=== PATIENT | female | born 1970 | race Caucasian/White ===

== ENCOUNTER 2020-11-28 20:52 | Emergency (ER) | payer MEDICARE, MEDICAID, SELFPAY ==
[2020-11-28 21:02] VITALS: BP 161/96; PULSE 100; RESP 18; TEMP 36.9; O2SAT 98; BMI 37.8
--- NOTE | 2020-11-29 00:03 | ED_ITS ---
HPI - Dental/Oral General Chief complaint: Dental/Oral Stated complaint: tooth infection Source: patient Mode of arrival: ambulatory Limitations: no limitations History of Present Illness HPI Narrative: 50-year-old female presents with 1 day of toothache and gum swelling with drainage. States that she has recurrent lower tooth pain and saw her dentist earlier this morning. Patient disagrees with dentist opinion and feels that she needs antibiotics. She was treated with clindamycin about 2 weeks ago. She does not report any other symptoms. MD Complaint: tooth pain Teeth map: 1. Onset (ago): day(s) (One) Duration: constant Severity: moderate Severity scale (1-10): 6 Relieving factors: nothing Exacerbating factors: chewing, cold and heat Context: history of dental caries and poor dental care Associated symptoms: gum swelling Treatment prior to arrival: oral analgesic Related Data Previous Rx's Medication Instructions Recorded azithromycin 250 mg tablet 250 mg PO DAILY 4 Days #4 tab 11/29/20 Allergies Allergy/AdvReac Type Severity Reaction Status Date / Time clarithromycin [From BIAXIN] Allergy Unknown RASH Verified 11/28/20 21:02 codeine [CODEINE] Allergy Unknown RASH Verified 11/28/20 21:02 iodine [IODINE] Allergy Unknown RASH Verified 11/28/20 21:02 Penicillins [PENICILLINS] Allergy Unknown RASH Verified 11/28/20 21:02 Sulfa (Sulfonamide Allergy Unknown RASH Verified 11/28/20 21:02 Antibiotics) [SULFA (SULFONAMIDE ANTIBIOTICS)] Review of Systems Review of Systems: Constitutional: No Fever, No Chills ENT/Mouth: No swallowing difficulty, no change in voice, positive dental pain, positive jaw pain, no facial swelling Eyes: No Eye Pain, No Swelling Cardiovascular: No Chest Pain, No SOB Respiratory: No Cough, No Sputum, No Wheezing, No Smoke Exposure, No Dyspnea Gastrointestinal: No Nausea, No Vomiting, No Diarrhea Genitourinary: No Dysuria Musculoskeletal: No Myalgias Skin: No rash Neuro: No Weakness, No Numbness, No Headache Yes all other systems are reviewed and are negative [facility] Past Medical History Attestation statement: The following information was validated with the patient. Source: old records reviewed Medical History (Updated 11/29/20 @ 00:15 by Sharon Lewis NP) Asthma Back pain Hypertension Surgical History H/O tooth extraction Social History Social History Advance Directives: No Advance Directives Information Provided: Yes Patient : No Physical Exam Vital Signs: Vital Signs: Last Vital Signs Temp 98.5 F 11/28/20 21:02 Pulse 100 11/28/20 21:02 Resp 18 11/28/20 21:02 BP 161/96 H 11/28/20 21:02 Pulse Ox 98 11/28/20 21:02 Body Mass Index 37.8 Appearance: Alert. Oriented X3. No acute distress. Eyes: Pupils equal, round and reactive to light. ENT: Pharynx normal. Gingivitis around tooth 19 and 20 Neck: Normal inspection. Neck supple. No cervical lymphadenopathy noted. CVS: Normal heart rate and rhythm. Pulses normal. Respiratory: No respiratory distress. Breath sounds normal. Abdomen: Soft and nontender. Skin: Skin warm and dry. Normal skin color. Normal skin turgor. Extremities: No lower extremity edema. Neuro: No motor deficit. No sensory deficit. Cranial nerves 2-12 intact. Course Course Course Narrative: 50-year-old female presents with dental pain. Was recently treated for dental abscess and tooth extraction with clindamycin approximately 2 weeks ago. She does have future appointments for tooth extraction. Was seen by dentist earlier this morning but stated that they did not feel that she had an infection. She states that since this morning that there has been more swelling to the inside of her mouth. She does have some significant gingivitis around tooth 19 and 20 with some bleeding. Will give azithromycin as she is allergic to penicillin, sulfa, and recently was given clindamycin twice in the past 2 months. Patient verbalized understanding of and agrees to plan of care discharge home. Does understand that she must continue to follow-up with dentist. MDM - Dental/Oral Differential Diagnosis Differential diagnosis: Likely gingival abscess, dental caries, toothache and dental abscess Discharge Plan Discharge Clinical Impression: Toothache, Acute gingivitis Patient Disposition: Home, Self-Care Instructions: Gingivitis (ED), Toothache (ED) Additional Instructions: You were evaluated for dental pain and gum swelling. Please take azithromycin as directed. Follow-up with your dentist. Thank you for choosing this emergency department for evaluation. Please foll ow-up with primary care physician as needed. Return to the emergency department for any new, concerning, or worsening symptoms. Prescriptions: New azithromycin 250 mg tablet 250 mg PO DAILY 4 Days Qty: 4 RF: 0 Interventions: ED Discharge Assessment Last Done: 11/29/20 00:37 Discharge Date/Time: 11/29/20 00:39
[2020-11-29] MEDS: Acetaminophen 325 MG TABLET 650 MG PO (00:34)
[2020-11-29] MEDS: Azithromycin 500 MG TABLET PO (00:34)
== END 2020-11-29 00:39 | disposition home or self-care (01) ==
PROVIDERS: Emergency Provider Emergency Medicine Emergency Medical Services; PCP Family Medicine
DX: K05.00 Acute gingivitis, plaque induced (principal); K08.89 Other specified disorders of teeth and supporting structures; Z79.899 Other long term (current) drug therapy
CPT/HCPCS: 99283

== ENCOUNTER 2020-12-16 19:12 | Emergency (ER) | payer MEDICARE, MEDICAID, SELFPAY ==
[2020-12-16 19:38] VITALS: BP 153/93; PULSE 91; RESP 18; TEMP 36.4; O2SAT 98; BMI 37.3
--- NOTE | 2020-12-16 21:00 | ED.DENTAL ---
HPI - Dental/Oral General Chief complaint: Dental/Oral Stated complaint: Mouth Infection Time Seen by Provider: 12/16/20 20:28 Source: patient Mode of arrival: ambulatory Limitations: no limitations History of Present Illness HPI Narrative: 50 y/o female presenting with various areas of dental and gum pain after she got a right lower tooth removed on November 15. She saw a different dentist than her own yesterday and was told she had gingivitis and was prescribed a mouthwash. She reports ongoing discomfort in her right lower jaw with reddened gums as well as upper left tooth pain. She plans on calling her dentist on Thursday but could not wait til then. She denies facial swelling. She reports pain with eating. MD Complaint: tooth pain Teeth map: 1. recent extraction with reddened and tender gums Onset (ago): week(s) Duration: constant Severity: moderate Severity scale (1-10): 5 Relieving factors: NSAIDs Exacerbating factors: chewing, cold and heat Context: history of dental caries and poor dental care Associated symptoms: gum swelling Treatment prior to arrival: none Related Data Previous Rx's Medication Instructions Recorded azithromycin 250 mg tablet 250 mg PO DAILY 4 Days #4 tab 11/29/20 azithromycin 250 mg tablet 250 mg PO DAILY 4 Days #4 tab 12/16/20 Allergies Allergy/AdvReac Type Severity Reaction Status Date / Time clarithromycin [From BIAXIN] Allergy Unknown RASH Verified 12/16/20 20:33 codeine [CODEINE] Allergy Unknown RASH Verified 12/16/20 20:33 iodine [IODINE] Allergy Unknown RASH Verified 12/16/20 20:33 Penicillins [PENICILLINS] Allergy Unknown RASH Verified 12/16/20 20:33 Sulfa (Sulfonamide Allergy Unknown RASH Verified 12/16/20 20:33 Antibiotics) [SULFA (SULFONAMIDE ANTIBIOTICS)] Review of Systems Review of Systems: Constitutional: No Fever, No Chills ENT/Mouth: No sore throat, No Rhinorrhea, No Swallowing Difficulty, +dental pain Cardiovascular: No Chest Pain, No SOB Respiratory: No Cough, No Sputum Gastrointestinal: No Nausea, No Vomiting, No abdominal Pain Skin: No Skin Lesions, No rash Neuro: No Weakness, No Numbness Heme/Lymph: No Bruising, No Lymphadenopathy [facility] Past Medical History Medical History (Updated 12/16/20 @ 21:01 by UMER Bush) Asthma Back pain Hypertension Surgical History H/O tooth extraction Social History Social History Advance Directives: No Advance Directives Information Provided: No Patient : No Physical Exam Vital Signs: Vital Signs: Last Vital Signs Temp 97.6 F 12/16/20 19:38 Pulse 91 12/16/20 19:38 Resp 18 12/16/20 19:38 BP 153/93 H 12/16/20 19:38 Pulse Ox 98 12/16/20 19:38 Body Mass Index 37.3 Appearance: Alert. Oriented X3. No acute distress. Eyes: Pupils equal, round and reactive to light. ENT: no facial swelling, poor dentition with multiple prior extractions, right lower gums are erythematous and tender without fluctance or drainage. Neck: Normal inspection. Neck supple. CVS: Normal heart rate and rhythm. Pulses normal. Respiratory: No respiratory distress. Breath sounds normal. Skin: Skin warm and dry. Normal skin color. Normal skin turgor. No rashes. Extremities: No lower extremity edema. Neuro: Oriented X 3. No motor deficit. No sensory deficit. Course Course Course Narrative: 50 y/o female presenting with reddened and inflamed gums in her right lower mouth. No palpable abscess, no facial swelling. Will give empiric abx to cover possible infection until she can be seen by her dentist on Thursday. Patient agrees with plan and is stable for discharge home. Critical Care Time Critical Care Time Critical Care Time: No Discharge Plan Discharge Clinical Impression: Toothache Patient Disposition: Home, Self-Care Instructions: Gingivitis (ED) Additional Instructions: Take the prescribed antibiotic as directed. Follow up with your dentist on Thursday. Continue using the prescribed mouthwash. If you develop new or worsening symptoms call 911 or come back to the ER for further evaluation. Prescriptions: New azithromycin 250 mg tablet 250 mg PO DAILY 4 Days Qty: 4 RF: 0 No Action azithromycin 250 mg tablet 250 mg PO DAILY 4 Days Qty: 4 RF: 0 Interventions: ED Discharge Assessment Last Done: 12/16/20 21:31 Discharge Date/Time: 12/16/20 21:32
[2020-12-16] MEDS: Azithromycin 500 MG TABLET PO (21:28)
== END 2020-12-16 21:32 | disposition home or self-care (01) ==
PROVIDERS: Emergency Provider Internal Medicine
DX: K08.89 Other specified disorders of teeth and supporting structures (principal); Z79.899 Other long term (current) drug therapy
CPT/HCPCS: 99283; 99284

== ENCOUNTER 2021-01-12 21:38 | Emergency (ER) | payer MEDICARE, MEDICAID, SELFPAY ==
[2021-01-12 21:41] VITALS: BP 175/99; PULSE 114; RESP 18; TEMP 35.8; O2SAT 99; BMI 36.6
--- NOTE | 2021-01-12 22:24 | ED.DENTAL ---
HPI - Dental/Oral General Chief complaint: Dental/Oral Stated complaint: dental pain Source: patient Mode of arrival: ambulatory Limitations: no limitations History of Present Illness HPI Narrative: 50-year-old female presents with unrelieved dental pain. Was seen by the dentist earlier today for gingivitis, was given an x-ray and a prescription for clindamycin. Patient took 200 mg of ibuprofen earlier today with no affect. MD Complaint: tooth pain Teeth map: 1. Onset (ago): day(s) Duration: constant Severity: moderate Relieving factors: NSAIDs (200 mg of ibuprofen) Exacerbating factors: chewing, cold and heat Context: history of dental caries and poor dental care Associated symptoms: gum swelling Related Data Previous Rx's Medication Instructions Recorded azithromycin 250 mg tablet 250 mg PO DAILY 4 Days #4 tab 11/29/20 azithromycin 250 mg tablet 250 mg PO DAILY 4 Days #4 tab 12/16/20 Allergies Allergy/AdvReac Type Severity Reaction Status Date / Time clarithromycin [From BIAXIN] Allergy Unknown RASH Verified 01/12/21 21:41 codeine [CODEINE] Allergy Unknown RASH Verified 01/12/21 21:41 iodine [IODINE] Allergy Unknown RASH Verified 01/12/21 21:41 Penicillins [PENICILLINS] Allergy Unknown RASH Verified 01/12/21 21:41 Sulfa (Sulfonamide Allergy Unknown RASH Verified 01/12/21 21:41 Antibiotics) [SULFA (SULFONAMIDE ANTIBIOTICS)] Review of Systems Review of Systems: Constitutional: No Fever, No Chills ENT/Mouth: Positive dental pain, positive gingivitis, No Ear Pain, No Hoarseness, No sore throat Eyes: No Eye Pain, No Swelling, No Redness, No Foreign Body Cardiovascular: No Chest Pain, No SOB Respiratory: No Cough, No Dyspnea Gastrointestinal: No Nausea, No Vomiting, No Diarrhea, No abdominal Pain Genitourinary: No Dysuria, No Hematuria Musculoskeletal: positive joint pain, No Myalgias, No Joint Swelling Skin: No Skin lacerations, No rash Neuro: No Weakness, No Numbness, No Paresthesias, No Loss of Consciousness, No Dizziness, No Headache Psych: No Anxiety/Panic, No Depression Heme/Lymph: no easy bruising, no Lymphadenopathy Endocrine: No Polyuria, No Polydipsia Yes all other systems are reviewed and are negative [facility] Past Medical History Attestation statement: The following information was validated with the patient. Source: old records reviewed Medical History Asthma Back pain Hypertension Surgical History H/O tooth extraction Social History Social History Advance Directives: No Advance Directives Information Provided: No Patient : No Physical Exam Vital Signs: Vital Signs: Last Vital Signs Temp 96.5 F L 01/12/21 21:41 Pulse 99 01/12/21 22:25 Resp 18 01/12/21 22:25 BP 153/100 H 01/12/21 22:25 Pulse Ox 97 01/12/21 22:25 Body Mass Index 36.6 Appearance: Alert. Oriented X3. No acute distress. Eyes: PERRLA. EOMI. Conjunctiva and sclera normal. Eyelids normal.? ENT: TM's Normal. Pharynx normal. Uvula midline. Moist mucous membranes. ? No trismus noted.? No drooling noted.? No muffled voice noted. Neck: Normal inspection. Neck supple. No adenopathy. Thyroid Normal. No meningeal signs. No neck mass noted. CVS: Normal heart rate and rhythm. Heart sound normal. No murmurs noted. Pulses? equal to all extremities. Respiratory: No respiratory distress. Painless inspiration. Breath sounds normal. No wheezes/rales/rhonchi noted. Chest nontender. ? No accessory muscle usage noted or decreased air movement noted. Skin: Skin warm and dry. Normal skin color. Normal skin turgor. Extremities: No lower extremity edema. Neuro: No motor deficit. No sensory deficit. Course Course Course Narrative: 50-year-old female presents with dental pain. Seen by her dentist earlier today and given clindamycin for gingivitis and dental caries. Her dentist recommended ibuprofen, however she has only been taking 200 mg tablets. Patient states to have anxiety, and is due for her blood pressure medications at 11. Will give Toradol IM. Patient was advised take 600 mg of ibuprofen rather than 200 every 6 hours as needed for pain. This [employer] as well as Nursing discussed in detail appropriate ibuprofen dosage. Patient and patient's family verbalized understanding of and agrees to this plan of care. MDM - Dental/Oral Differential Diagnosis Differential diagnosis: Likely dental caries and toothache Medical Records Attestation: I reviewed the patient's medical records. Discharge Plan Discharge Clinical Impression: Toothache, Dental caries Patient Disposition: Home, Self-Care Instructions: Toothache (ED) Additional Instructions: You were evaluated for dental pain. Please take 600 mg of ibuprofen every 6 hours as needed for pain. Continue to take the clindamycin that was prescribed by her dentist earlier today. You may consider using Orajel for further pain management. Thank you for choosing this emergency department for evaluation. Please follow-up with primary care physician as needed. Return to the emergency department for any new, concerning, or worsening symptoms. Prescriptions: No Action azithromycin 250 mg tablet 250 mg PO DAILY 4 Days Qty: 4 RF: 0 azithromycin 250 mg tablet 250 mg PO DAILY 4 Days Qty: 4 RF: 0
[2021-01-12 22:25] VITALS: BP 153/100; PULSE 99; RESP 18; O2SAT 97
[2021-01-12] MEDS: Ketorolac Tromethamine 60 MG/2 ML VIAL IM (23:25)
== END 2021-01-12 23:43 | disposition home or self-care (01) ==
PROVIDERS: Emergency Provider Emergency Medicine Emergency Medical Services; PCP Family Medicine
DX: K02.9 Dental caries, unspecified (principal); Z79.899 Other long term (current) drug therapy
CPT/HCPCS: 96372; 99284; J1885

== ENCOUNTER 2021-03-05 17:47 | Emergency (ER) | payer MEDICARE, MEDICAID, SELFPAY ==
[2021-03-05 19:14] VITALS: BP 147/95; PULSE 98; RESP 18; TEMP 36.8; O2SAT 98; BMI 34.7
--- NOTE | 2021-03-05 19:51 | ED_ITS ---
HPI - General Adult General Chief complaint: General Medical Stated complaint: infection in her mouthj Time Seen by Provider: 03/05/21 19:37 Source: patient Mode of arrival: ambulatory Limitations: no limitations History of Present Illness HPI narrative: 51-year-old female here with complaints of dental pain for the last 2 days. Patient tells me she went to her dentist and he told her that she had gingivitis but she is having continued pain and feels like there is swelling and discomfort to the site. She denies any fevers or chills. She has another coming appointment with her dentist on Thursday as a follow-up. Related Data Previous Rx's Medication Instructions Recorded azithromycin 250 mg tablet 250 mg PO DAILY 4 Days #4 tab 11/29/20 azithromycin 250 mg tablet 250 mg PO DAILY 4 Days #4 tab 12/16/20 ibuprofen 600 mg tablet 600 mg PO Q8H PRN #60 tab 01/12/21 clindamycin HCl 300 mg capsule 300 mg PO TID #21 cap 03/05/21 Allergies Allergy/AdvReac Type Severity Reaction Status Date / Time clarithromycin [From BIAXIN] Allergy Unknown RASH Verified 03/05/21 19:14 codeine [CODEINE] Allergy Unknown RASH Verified 03/05/21 19:14 iodine [IODINE] Allergy Unknown RASH Verified 03/05/21 19:14 Penicillins [PENICILLINS] Allergy Unknown RASH Verified 03/05/21 19:14 Sulfa (Sulfonamide Allergy Unknown RASH Verified 03/05/21 19:14 Antibiotics) [SULFA (SULFONAMIDE ANTIBIOTICS)] Review of Systems Review of Systems: Yes all other systems are reviewed and are negative Constitutional: Constitutional: Reports no additional constitutional complaints, Denies body ache(s), Denies chills, Denies fever(s), Denies headache(s) and Denies weakness Eyes: Eyes: Reports no additional eye complaints and Denies change in vision ENT: Reports system reviewed and no additional complaints, except as documented, Reports dental pain, Denies dizziness, Denies headache(s), Denies nasal congestion, Denies nasal discharge and Denies neck pain Cardiovascular: Cardiovascular: Reports no additional cardiovascular complaints, Denies chest pain, Denies leg edema and Denies dyspnea Respiratory: Respiratory: Reports no additional respiratory complaints, Denies cough and Denies dyspnea Gastrointestinal: Gastrointestinal: Reports no additional gastrointestinal complaints, Denies abdominal pain, Denies diarrhea, Denies nausea and Denies vomiting Genitourinary: Genitourinary: Reports no additional female genitourinary complaints and Denies urinary incontinence Musculoskeletal: Musculoskeletal: Reports no additional musculoskeletal complaints, Denies back pain, Denies arthralgias, Denies joint swelling, Denies neck pain, Denies numbness and Denies tingling Integumentary/Breasts: Skin/Breast: Reports system reviewed and no additional complaints, except as docu and Denies rash Neurologic: Reports system reviewed and no additional complaints, except as documented, Denies Abnormal speech present, Denies dizziness, Denies heada neena(s), Denies numbness, Denies tingling and Denies weakness [facility] Past Medical History Attestation statement: The following information was validated with the patient. Source: old records reviewed and nursing notes reviewed Medical History Asthma Back pain Hypertension Surgical History H/O tooth extraction Social History Social History Advance Directives: No Advance Directives Information Provided: No Physical Exam Vital Signs: Vital Signs: Last Vital Signs Temp 98.3 F 03/05/21 19:14 Pulse 98 03/05/21 19:14 Resp 18 03/05/21 19:14 BP 147/95 H 03/05/21 19:14 Pulse Ox 98 03/05/21 19:14 Body Mass Index 34.7 Const: General: cooperative, healthy appearing, comfortable and no acute distress Orientation/consciousness: patient oriented x3 Limitations: no limitations HENMT: Head: Yes normal to inspection Ears: hearing grossly normal bilaterally and TM's normal bilaterally General nose exam: Normal external nose present Face and sinus: Yes normal facial exam Mouth: Normal oral and palatal mucosa present Teeth and gingiva: caries Teeth image: 1. Swelling, redness, discomfort with palpation with no fluctuance or induration Throat: Yes posterior oropharynx normal, Yes tonsils normal and Yes uvula midline Eyes: General: appearance normal, both eyes and all related structures Pupils: Equal, round and reactive pupils present Neck: Neck: Yes normal visual inspection Chest: Chest palpation & inspection: normal inspection of the chest Resp: Effort & Inspection: normal respiratory effort Auscultation: clear to auscultation bilaterally Cardio: Rate: regular rate Rhythm: regular rhythm Peripheral pulses: Peripheral pulses 2+ throughout GI: Inspection: Yes normal to inspection Palpation (GI): Soft to palpation and nontender Auscultation: normal bowel sounds Back/Spine/Pelvis: Thoracic/Lumbar Spine: thoracic and lumbar spine normal to inspection Skin: General skin exam: no rashes or lesions noted Neuro: General: patient oriented x3, no focal motor deficits and normal sensation to monofilament Cranial nerves: Yes Equal, round and reactive p upils present Cognition (Neuro): normal cognition Speech: No Abnormal speech present Gait exam (Neuro): Normal gait present Motor exam (neuro): 5/5 motor strength present throughout Extrem: General: Yes normal to inspection Course Course Course Narrative: 51-year-old female with a history of extensive dental caries here with reports of some pain and swelling and redness to the right upper tooth. On exam patient has what appears to be some mild gingivitis. She does have some local swelling and redness around 1 of her front teeth. Will treat with course of antibiotics. Recommend saltwater gargles and follow-up with dental clinic. Reviewed worrisome signs and symptoms of when to return to the emergency department. Comfortable with discharge home. Medical Decision Making Medical Records Medical records reviewed: Yes I reviewed the patient's medical records. Lab Data Lab results reviewed: Yes I reviewed the patient's lab results. Discharge Plan Discharge Clinical Impression: Pain, dental Patient Disposition: Home, Self-Care Instructions: Toothache (ED) Additional Instructions: Continue salt water gargles Motrin/tylenol for pain or fever as needed Follow with dental clinic Prescriptions: New clindamycin HCl 300 mg capsule 300 mg PO TID Qty: 21 RF: 0 No Action azithromycin 250 mg tablet 250 mg PO DAILY 4 Days Qty: 4 RF: 0 azithromycin 250 mg tablet 250 mg PO DAILY 4 Days Qty: 4 RF: 0 ibuprofen 600 mg tablet 600 mg PO Q8H PRN (Reason: pain) Qty: 60 RF: 0 Referrals: Soha Can MD [Primary Care Provider] - 2 days Interventions: ED Discharge Assessment Last Done: 03/05/21 19:58 Discharge Date/Time: 03/05/21 19:58
== END 2021-03-05 19:58 | disposition home or self-care (01) ==
LOC: HO.ED 19:44
PROVIDERS: Emergency Provider Internal Medicine; PCP Family Medicine
DX: K02.9 Dental caries, unspecified (principal); Z79.899 Other long term (current) drug therapy
CPT/HCPCS: 99283

== ENCOUNTER 2021-03-19 20:16 | Emergency (ER) | payer MEDICARE, MEDICAID, SELFPAY ==
[2021-03-19 20:26] VITALS: BP 159/98; PULSE 114; RESP 18; TEMP 36.6; O2SAT 97; BMI 34.0
--- NOTE | 2021-03-19 23:12 | ED.GENADULT ---
HPI - General Adult General Chief complaint: Dental/Oral Stated complaint: mouth pain extraction 03/19 Time Seen by Provider: 03/19/21 23:10 Source: patient and family Mode of arrival: ambulatory Limitations: no limitations History of Present Illness HPI narrative: 51-year-old female came in for evaluation of severe dental pain. Patient with extensive gum disease that been having dental extraction, patient had 2 dental extraction today both right lower 1st and 2nd bicuspid tooth, patient unable to swallow because of the pain patient did not take ibuprofen. Related Data Previous Rx's Medication Instructions Recorded azithromycin 250 mg tablet 250 mg PO DAILY 4 Days #4 tab 11/29/20 azithromycin 250 mg tablet 250 mg PO DAILY 4 Days #4 tab 12/16/20 ibuprofen 600 mg tablet 600 mg PO Q8H PRN #60 tab 01/12/21 clindamycin HCl 300 mg capsule 300 mg PO TID #21 cap 03/05/21 Allergies Allergy/AdvReac Type Severity Reaction Status Date / Time clarithromycin [From BIAXIN] Allergy Unknown RASH Verified 03/05/21 19:14 codeine [CODEINE] Allergy Unknown RASH Verified 03/05/21 19:14 iodine [IODINE] Allergy Unknown RASH Verified 03/05/21 19:14 Penicillins [PENICILLINS] Allergy Unknown RASH Verified 03/05/21 19:14 Sulfa (Sulfonamide Allergy Unknown RASH Verified 03/05/21 19:14 Antibiotics) [SULFA (SULFONAMIDE ANTIBIOTICS)] Review of Systems Review of Systems: All other systems are reviewed and are negative Constitutional: Reports as per HPI and Reports no additional constitutional complaints Eyes: Reports as per HPI and Reports no additional eye complaints Reports system reviewed and no additional complaints, except as documented Cardiovascular: Reports as per HPI and Reports no additional cardiovascular complaints Respiratory: Reports as per HPI and Reports no additional respiratory complaints Gastrointestinal: Reports as per HPI and Reports no additional gastrointestinal complaints Genitourinary: Reports no additional female genitourinary complaints Musculoskeletal: Reports no additional musculoskeletal complaints Skin/Breast: Reports system reviewed and no additional complaints, except as docu Psychiatric: Reports no additional psychiatric complaints Endocrine: Reports no additional endocrine complaints Hematologic/Lymphatic: Reports no additional hematologic/lymphatic complaints Allergic/Immunologic: Reports no additional allergic/immunologic complaints Reports system reviewed and no additional complaints, except as documented and Reports Abnormal speech present PMFSH Past Medical History Medical History Asthma Back pain Hypertension Surgical History H/O tooth extraction Social History Social History Advance Directives: No Advance Directives Information Provided: No Physical Exam Vital Signs: Vital Signs: Last Vital Signs Temp 98 F 03/19/21 20:26 Pulse 114 H 03/19/21 20:26 Resp 18 03/19/21 20:26 BP 159/98 H 03/19/21 20:26 Pulse Ox 97 03/19/21 20:26 BMI result Body Mass Index 34.0 Insert normal vital signs. Appearance: Alert. Oriented X3. No acute distress. Head: Normal external exam. Normocephalic. Atraumatic. No Saleh signs noted. No raccoon eyes noted. Mouth exam: Status post right lower 1st and 2nd bicuspid tooth extraction, blood clots intact with no dry socket, no active bleeding, no palpable fluctuation or abscess. Eyes: PERRLA. EOMI. Conjunctiva and sclera normal. Eyelids normal. ENT: TM's Normal. Pharynx normal. Uvula midline. Moist mucous membranes. No trismus noted. No drooling noted. No muffled voice noted. Neck: Normal inspection. Neck supple. FROM. No adenopathy. Thyroid Normal. No meningeal signs. No neck mass noted. CVS: Normal heart rate and rhythm. Heart sound normal. No murmurs noted. Pulses normal throughout. Respiratory: No respiratory distress. Painless inspiration. Breath sounds normal. No wheezes/rales/rhonchi noted. Chest nontender. No accessory muscle usage noted or decreased air movement noted. Abdomen: Soft and nontender. Bowel sounds normal in all 4 quadrants. No distention noted. No organomegaly noted. No visible injury noted. Back: No CVA tenderness. Full range of motion noted. Skin: Skin warm and dry. Normal skin color. Normal skin turgor. No rashes/lesions/lacerations noted. Extremities: No lower extremity edema. Extremities exhibit normal range of motion. Extremities nontender. Neuro: Oriented X 3. Cranial nerve exam: II-XII are grossly intact No motor deficit. No sensory deficit. Reflexes normal. Course Course Course Narrative: Assessment and plan. 51-year-old female came was oral pain secondary to extraction of 2 toes today, patient did not take pain medication. Patient was given 1 shot of Toradol and felt better, will discharge home to follow-up with her dentist in the morning. Discharge Plan Discharge Clinical Impression: Toothache Patient Disposition: Home, Self-Care Instructions: Toothache (ED) Additional Instructions: If pain persist please contact your dentist. Prescriptions: No Action azithromycin 250 mg tablet 250 mg PO DAILY 4 Days Qty: 4 RF: 0 azithromycin 250 mg tablet 250 mg PO DAILY 4 Days Qty: 4 RF: 0 ibuprofen 600 mg tablet 600 mg PO Q8H PRN (Reason: pain) Qty: 60 RF: 0 clindamycin HCl 300 mg capsule 300 mg PO TID Qty: 21 RF: 0 Referrals: Soha Can MD [Primary Care Provider] - 2 days
[2021-03-19 23:13] VITALS: BP 147/81; PULSE 87; RESP 18; O2SAT 96
[2021-03-19] MEDS: Ketorolac Tromethamine 60 MG/2 ML VIAL IM (23:31)
== END 2021-03-19 23:43 | disposition home or self-care (01) ==
PROVIDERS: Emergency Provider Emergency Medicine; PCP Family Medicine
DX: K02.9 Dental caries, unspecified (principal); Z79.899 Other long term (current) drug therapy
CPT/HCPCS: 96372; 99284; J1885

== ENCOUNTER 2021-04-01 10:22 | Emergency (ER) | payer MEDICARE, MEDICAID, SELFPAY ==
--- NOTE | ~2021-04-01 | XR_ITS ---
EXAMINATION: XR SHOULDER, RIGHT CLINICAL INFORMATION: Atraumatic right shoulder pain COMPARISON: None TECHNIQUE: Three views of the right shoulder. FINDINGS: Bone alignment is normal. No fracture or dislocation is seen. The joint spaces are normal. There is soft tissue calcification adjacent to the right greater tuberosity suggestive of calcific bursitis. XR/XR shoulder RT min 2V IMPRESSION: Soft tissue calcification adjacent to the greater tuberosity suggestive of calcific bursitis.
[2021-04-01 11:28] VITALS: BP 149/87; PULSE 124; RESP 18; TEMP 36.9; O2SAT 99; BMI 33.8
--- NOTE | 2021-04-01 11:29 | ED_ITS ---
HPI - Extremity Problem General Chief complaint: Extremity Injury, Upper Stated complaint: r arm pain Time Seen by Provider: 04/01/21 11:28 Source: patient and family Mode of arrival: ambulatory Limitations: no limitations History of Present Illness HPI Narrative: 51-year-old female with a past medical history of hypertension, asthma chronic back pain presenting to the ED with complaints of atraumatic right shoulder pain with limited range of motion since Thursday worse today especially when she tries to lift her arm or tries to dress herself for any activity with the right arm. She denies any falls, fevers, chills, dizziness, headaches, nausea/ vomiting, changes in vision, chest pain or shortness of breath, dyspnea on exertion, orthopnea, extremity edema, palpitations, recent travel or falls, denies recent immobilization surgery, history of DVT or PE, history of PVD, recent illness, history of gout, rashes, paresthesias or any other symptoms complaints or concerns at this time. MD Complaint: other ( Right shoulder joint pain) Onset (ago): day(s) (2) Pain Consistency: constant Location: right and upper extremity ( shoulder) Severity scale (1-10): >10 Quality: aching and constant Radiation: none Relieving factors: other ( keeping it in an internal rotation) Exacerbating factors: range of motion and palpation Associated symptoms: denies other symptoms Related Data Previous Rx's Medication Instructions Recorded azithromycin 250 mg tablet 250 mg PO DAILY 4 Days #4 tab 11/29/20 azithromycin 250 mg tablet 250 mg PO DAILY 4 Days #4 tab 12/16/20 ibuprofen 600 mg tablet 600 mg PO Q8H PRN #60 tab 01/12/21 clindamycin HCl 300 mg capsule 300 mg PO TID #21 cap 03/05/21 hydrocodone 5 mg-acetaminophen 325 1 tab PO Q6-8H PRN #14 tab 04/01/21 mg tablet ibuprofen 800 mg tablet 800 mg PO Q6H PRN #14 tab 04/01/21 Allergies Allergy/AdvReac Type Severity Reaction Status Date / Time clarithromycin [From BIAXIN] Allergy Unknown RASH Verified 03/05/21 19:14 codeine [CODEINE] Allergy Unknown RASH Verified 03/05/21 19:14 iodine [IODINE] Allergy Unknown RASH Verified 03/05/21 19:14 Penicillins [PENICILLINS] Allergy Unknown RASH Verified 03/05/21 19:14 Sulfa (Sulfonamide Allergy Unknown RASH Verified 03/05/21 19:14 Antibiotics) [SULFA (SULFONAMIDE ANTIBIOTICS)] Review of Systems Review of Systems: Constitutional : No Weight loss, No Fever, No Chills, No Night Sweats, No Fatigue, No Malaise ENT/Mouth : No Hearing loss, No Ear Pain, No Nasal Congestion, No Sinus Pain, No Hoarseness, No sore throat, No Rhinorrhea, No Swallowing Difficulty Eyes: No Eye Pain, No Swelling, No Redness, No Foreign Body, No Discharge, No Vision Changes Cardiovascular : No Chest Pain, No SOB, No Dyspnea on Exertion, No Orthopnea, No Edema, No Palpitations Respiratory : No Cough, No Sputum, No Wheezing, No Smoke Exposure, No Dyspnea Gastrointestinal : No Nausea, No Vomiting, No Diarrhea, No Constipation, No abdominal Pain, No Hematochezia, No Melena Genitourinary : no irregular bleeding, No Dysuria, No Urinary Frequency, No Hematuria, No Urinary Incontinence, No Urgency, No Flank Pain, No Urinary Flow Changes, No Hesitancy Musculoskeletal : + joint pain, No Myalgias, No Joint Swelling Skin : No Skin Lesions, No rash Neuro : No Weakness, No Numbness, No Paresthesias, No Loss of Consciousness, No Dizziness, No Headache Psych : No Anxiety/Panic, No Depression, No SI/HI/AH/VH, No Social Issues, Heme/Lymph: No Bruising, No Bleeding,No Lymphadenopathy Endocrine : No Polyuria, No Polydipsia, No Temperature Intolerance Yes all oth er systems are reviewed and are negative [facility] Past Medical History Attestation statement: The following information was validated with the patient. Medical History Asthma Back pain Hypertension Surgical History H/O tooth extraction Social History Social History Advance Directives: No Advance Directives Information Provided: Yes Patient : No Physical Exam Vital Signs: Vital Signs: Last Vital Signs Temp 98.4 F 04/01/21 11:28 Pulse 124 H 04/01/21 11:28 Resp 18 04/01/21 11:28 BP 149/87 H 04/01/21 11:28 Pulse Ox 99 04/01/21 11:28 BMI result Body Mass Index 33.8 vital signs have been reviewed as normal and appeared to be correct. Blood pressure 149/87. Heart rate 124. Respiration rate normal. Temperature normal. Oxygen saturation normal. Appearance: Alert. Oriented X3. No acute distress. Head: Normal external exam. Normocephalic. Atraumatic. Eyes: PERRLA. EOMI. Conjunctiva and sclera normal. Eyelids normal. ENT: Pharynx normal. Uvula midline. Moist mucous membranes. No trismus noted. No drooling noted. No muffled voice noted. Neck: Normal inspection. Neck supple. FROM. No adenopathy. Thyroid Normal. No meningeal signs. No neck mass noted. CVS: Normal heart rate and rhythm. Heart sound normal. Pulses normal throughout. No murmurs/rales/gallops. Respiratory: No respiratory distress. Painless inspiration. Breath sounds normal. No wheezes/rales/rhonchi noted. Chest nontender. No accessory muscle usage noted or decreased air movement noted. Abdomen: Soft and nontender. Bowel sounds normal in all 4 quadrants. No distention noted. No organomegaly noted. No visible injury noted. Back: No CVA tenderness. Full range of motion noted. No rashes/lesion/induration/fluctuance or signs of infection noted. Skin: Skin warm and dry. Normal skin color. Normal skin turgor. No rashes/lesions/lacerations noted. Extremities: patient with moderate tenderness to the bursa of the right shoulder with limited range of motion with shoulder flexion / extension / abduction / external rotation. no obvious ligamentous or tendon injury noted. No rashes or signs of infection noted. She keeps it and internal rotation where she reports it feels comfortable. No extremity edema is noted. Otherwise all other Extremities exhibit normal range of motion and nontender. Neuro: Oriented X 3. No motor deficit. No sensory deficit. Reflexes normal. Normal steady gait. No focal neuro deficits noted. Vascular: + radial pulses/+ 2 distal pedal pulses/+2 dorsalis pedis b/l. Normal cap refill. No cyanosis noted to upper extremity nails and lower extremity toes nails. Course Course Course Narrative: 11:30am - Quick assessment. 51-year-old female presenting to the ED with complaints of right shoulder pain that started after she went to the bathroom on Thursday. She reports that she does not believe she injured it in any way denies any traumas or falls. Denies any numbness or tingling, chest pain or shortness of breath, dizziness, headache, palpitations, extremity edema or any other symptoms complaints or concerns at this time. Reports she is vaccinated to COVID. Denies recent travel/surgery/immobilization. At this time patient is alert oriented x3. Not in any acute distress. Only in pain. Vital signs are stable within normal limits. No focal neuro deficits are noted. Patient does have limited range of motion of the right shoulder she is unable to lift it. Although has full range of motion of the right elbow and right hand/wrist. No extremity edema. Positive radial pulses bilaterally noted . At this time a right shoulder x-ray was ordered and patient will be sent back to the waiting room for further evaluation treatment and emergency minor care. Patient understands agrees with this plan. Reevaluation(s) Reevaluation #1: X-ray revealed soft tissue calcification adjacent to the greater tuberosity suggestive of calcified bursitis otherwise no other acute processes. Therefore will give a Toradol injection and Vicodin and DC home with Motrin and Vicodin instructions to follow-up with orthopedic and her PCP although to follow-up with her PCP 1st for possible physical therapy referral. Along with instructions return if any new or worsening 7. Patient and family at bedside understands agrees this plan. Time: 14:01 MDM - Extremity (Nontraumatic) Imaging Data Right shoulder x-ray: Attestation: I personally reviewed and interpreted this imaging study as follows: Radiologist's impression: FINDINGS: Bone alignment is normal. No fracture or dislocation is seen. The joint spaces are normal. There is soft tissue calcification adjacent to the right greater tuberosity suggestive of calcific bursitis.? XR/XR shoulder RT min 2V IMPRESSION: Soft tissue calcification adjacent to the greater tuberosity suggestive of calcific bursitis. Procedures Orthopedic Splinting/Casting Injury #1: Side: right Upper Extremity Injury Location: shoulder Upper Extremity Immobilizer: sling/shoulder immobilizer Discharge Plan Discharge Clinical Impression: Acute bursitis of right shoulder Patient Disposition: Home, Self-Care Instructions: Shoulder Bursitis (ED) Additional Instructions: XRay Report Signed Patient: Dalia Francis MR#: [id number] : 1970 Acct:[id number] Age/Sex: 51 / F ADM Date: 04/01/21 Loc: HO.ED Attending Dr: Ordering Physician: Mildred Amador Date of Service: 04/01/21 Procedure(s): XR shoulder RT min 2V Accession Number(s): [id number] cc: Mildred Amador~ EXAMINATION: XR SHOULDER, RIGHT CLINICAL INFORMATION: Atraumatic right shoulder pain? COMPARISON: None? TECHNIQUE: Three views of the right shoulder. FINDINGS: Bone alignment is normal. No fracture or dislocation is seen. The joint spaces are normal. There is soft tissue calcification adjacent to the right greater tuberosity suggestive of calcific bursitis.? XR/XR shoulder RT min 2V IMPRESSION: Soft tissue calcification adjacent to the greater tuberosity suggestive of calcific bursitis. I am providing a sling although you should attempt to do the range of motion exercises that I showed you while in the emergency department as often as possible to prevent frozen shoulder. Follow up with her primary care provider for physical therapy referral. Then follow-up with orthopedic if indicated. Return if any new or worsening symptoms. Prescriptions: New hydrocodone-acetaminophen 5-325 mg tablet 1 tab PO Q6-8H PRN (Reason: pain) Qty: 14 RF: 0 ibuprofen 800 mg tablet 800 mg PO Q6H PRN (Reason: pain) Qty: 14 RF: 0 No Action azithromycin 250 mg tablet 250 mg PO DAILY 4 Days Qty: 4 RF: 0 azithromycin 250 mg tablet 250 mg PO DAILY 4 Days Qty: 4 RF: 0 ibuprofen 600 mg tablet 600 mg PO Q8H PRN (Reason: pain) Qty: 60 RF: 0 clindamycin HCl 300 mg capsule 300 mg PO TID Qty: 21 RF: 0 Referrals: Soha Can MD [Primary Care Provider] - 2 days Interventions: ED Discharge Assessment Last Done: 04/01/21 14:29 Discharge Date/Time: 04/01/21 14:30 Print Language: Sami
[2021-04-01] MEDS: Ketorolac Tromethamine 30 MG/ML VIAL 15 MG IVPUSH (14:17)
[2021-04-01] MEDS: HYDROcodone Bit/Acetam 5/325 TABLET 1 TAB PO (14:17)
== END 2021-04-01 14:30 | disposition home or self-care (01) ==
PROVIDERS: Emergency Provider Emergency Medicine; PCP Family Medicine
DX: M75.51 Bursitis of right shoulder (principal); I10 Essential (primary) hypertension
CPT/HCPCS: 73030; 96374; 99284; J1885

== ENCOUNTER 2021-04-12 12:34 | Emergency (ER) | payer MEDICARE, MEDICAID, SELFPAY ==
[2021-04-12 12:46] VITALS: BP 171/100; PULSE 100; RESP 18; TEMP 36.7; O2SAT 98; BMI 34.0
[2021-04-12 14:40] VITALS: BP 147/99; PULSE 114; RESP 18; O2SAT 97
--- NOTE | 2021-04-12 15:05 | ED.DENTAL ---
HPI - Dental/Oral General Chief complaint: Dental/Oral Stated complaint: Dental pain/r arm pain Time Seen by Provider: 04/12/21 14:58 History of Present Illness HPI Narrative: Patient complains of toothache, saw her dentist yesterday who is scheduling of procedure but now the pain is worse, no fever no difficulty swallowing no difficulty breathing no swelling under the tongue She also complains of chronic bursitis in the right shoulder, similar to many prior there is no injury she denies any redness swelling or fever Related Data Previous Rx's Medication Instructions Recorded azithromycin 250 mg tablet 250 mg PO DAILY 4 Days #4 tab 11/29/20 azithromycin 250 mg tablet 250 mg PO DAILY 4 Days #4 tab 12/16/20 ibuprofen 600 mg tablet 600 mg PO Q8H PRN #60 tab 01/12/21 clindamycin HCl 300 mg capsule 300 mg PO TID #21 cap 03/05/21 hydrocodone 5 mg-acetaminophen 325 1 tab PO Q6-8H PRN #14 tab 04/01/21 mg tablet ibuprofen 800 mg tablet 800 mg PO Q6H PRN #14 tab 04/01/21 clindamycin HCl 150 mg capsule 150 mg PO QID 7 Days #28 cap 04/12/21 ibuprofen 600 mg tablet 600 mg PO Q6H PRN #10 tab 04/12/21 Allergies Allergy/AdvReac Type Severity Reaction Status Date / Time clarithromycin [From BIAXIN] Allergy Unknown RASH Verified 03/05/21 19:14 codeine [CODEINE] Allergy Unknown RASH Verified 03/05/21 19:14 iodine [IODINE] Allergy Unknown RASH Verified 03/05/21 19:14 Penicillins [PENICILLINS] Allergy Unknown RASH Verified 03/05/21 19:14 Sulfa (Sulfonamide Allergy Unknown RASH Verified 03/05/21 19:14 Antibiotics) [SULFA (SULFONAMIDE ANTIBIOTICS)] Review of Systems Review of Systems: Positive for dental pain and right shoulder pain Negatives are no fever no chills no dizziness no weakness no headache no neck pain no difficulty breathing or swallowing no swelling under the tongue no drooling no shortness of breath no rash no numbness weakness or tingling no joint swelling Yes all other systems are reviewed and are negative PMFSH Past Medical History Source: nursing notes reviewed Medical History Asthma Back pain Hypertension Surgical History H/O tooth extraction Social History Social History Advance Directives: No Patient : No Physical Exam Vital Signs: Vital Signs: Last Vital Signs Temp 98.0 F 04/12/21 12:46 Pulse 114 H 04/12/21 14:40 Resp 18 04/12/21 14:40 BP 147/99 H 04/12/21 14:40 Pulse Ox 97 04/12/21 14:40 BMI result Body Mass Index 34.0 General appearance no acute distress Eyes no redness or discharge Dental exam the right lower molar 2 teeth are tender to the touch but there is no gum swelling there is no trismus there is no swelling under the tongue no impairment of breathing or swallowing Neck is supple Respiratory no distress Extremities the right shoulder had mild tenderness, had a good range of motion there was no redness or swelling and neurovascular intact distal Course Course Course Narrative: Patient is treated with Motrin for both the tooth pain in the shoulder pain, she has follow-up with dentist next week and is given number of the orthopedist and is discharged with antibiotic as well for possible dental infection Discharge Plan Discharge Clinical Impression: Dental caries Patient Disposition: Home, Self-Care Additional Instructions: Follow with her dentist as scheduled Follow with orthopedist for her shoulder Prescriptions: New clindamycin HCl 150 mg capsule 150 mg PO QID 7 Days Qty: 28 RF: 0 ibuprofen 600 mg tablet 600 mg PO Q6H PRN (Reason: pain) Qty: 10 RF: 0 No Action azithromycin 250 mg tablet 250 mg PO DAILY 4 Days Qty: 4 RF: 0 azithromycin 250 mg tablet 250 mg PO DAILY 4 Days Qty: 4 RF: 0 ibuprofen 600 mg tablet 600 mg PO Q8H PRN (Reason: pain) Qty: 60 RF: 0 clindamycin HCl 300 mg capsule 300 mg PO TID Qty: 21 RF: 0 hydrocodone-acetaminophen 5-325 mg tablet 1 tab PO Q6-8H PRN (Reason: pain) Qty: 14 RF: 0 ibuprofen 800 mg tablet 800 mg PO Q6H PRN (Reason: pain) Qty: 14 RF: 0 Referrals: Angel Villalpando MD [Physician] - 10 days (Right shoulder pain) Interventions: ED Discharge Assessment Last Done: 04/12/21 15:58 Discharge Date/Time: 04/12/21 15:59
[2021-04-12] MEDS: Ketorolac Tromethamine 30 MG/ML VIAL IM (15:57)
== END 2021-04-12 15:59 | disposition home or self-care (01) ==
PROVIDERS: Emergency Provider Emergency Medicine Emergency Medical Services; PCP Family Medicine
DX: K08.89 Other specified disorders of teeth and supporting structures (principal); M25.511 Pain in right shoulder; I10 Essential (primary) hypertension
CPT/HCPCS: 99284; J1885

== ENCOUNTER 2021-04-12 20:10 | Emergency (ER) | payer MEDICARE, MEDICAID, SELFPAY ==
[2021-04-12 20:34] VITALS: BP 132/82; PULSE 110; RESP 18; TEMP 36; O2SAT 97; BMI 34.0
--- NOTE | 2021-04-12 22:01 | ED.DENTAL ---
HPI - Dental/Oral General Chief complaint: Dental/Oral Stated complaint: Dental pain Time Seen by Provider: 04/12/21 22:00 Source: patient Mode of arrival: ambulatory Limitations: no limitations History of Present Illness HPI Narrative: Patient with chronic gum pain diagnosis gingivitis but then his home she saw yesterday already seen here did today and started on clindamycin and ibuprofen 600 mg 4 times a day patient comes here now and has she like to take 800 mg ibuprofen not 600 and she has not taken any medicine today for the pain patient was seen by dentist yesterday who does not want to give her any antibiotics or pain medication no pus discharge no fever Related Data Previous Rx's Medication Instructions Recorded azithromycin 250 mg tablet 250 mg PO DAILY 4 Days #4 tab 11/29/20 azithromycin 250 mg tablet 250 mg PO DAILY 4 Days #4 tab 12/16/20 ibuprofen 600 mg tablet 600 mg PO Q8H PRN #60 tab 01/12/21 clindamycin HCl 300 mg capsule 300 mg PO TID #21 cap 03/05/21 hydrocodone 5 mg-acetaminophen 325 1 tab PO Q6-8H PRN #14 tab 04/01/21 mg tablet ibuprofen 800 mg tablet 800 mg PO Q6H PRN #14 tab 04/01/21 clindamycin HCl 150 mg capsule 150 mg PO QID 7 Days #28 cap 04/12/21 ibuprofen 600 mg tablet 600 mg PO Q6H PRN #10 tab 04/12/21 Allergies Allergy/AdvReac Type Severity Reaction Status Date / Time clarithromycin [From BIAXIN] Allergy Unknown RASH Verified 03/05/21 19:14 codeine [CODEINE] Allergy Unknown RASH Verified 03/05/21 19:14 iodine [IODINE] Allergy Unknown RASH Verified 03/05/21 19:14 Penicillins [PENICILLINS] Allergy Unknown RASH Verified 03/05/21 19:14 Sulfa (Sulfonamide Allergy Unknown RASH Verified 03/05/21 19:14 Antibiotics) [SULFA (SULFONAMIDE ANTIBIOTICS)] Review of Systems Review of Systems: Yes all other systems are reviewed and are negative PMFSH Past Medical History Medical History Asthma Back pain Hypertension Surgical History H/O tooth extraction Social History Social History Advance Directives: No Patient : No Physical Exam Vital Signs: Vital Signs: Last Vital Signs Temp 96.8 F 04/12/21 20:34 Pulse 110 H 04/12/21 20:34 Resp 18 04/12/21 20:34 BP 132/82 04/12/21 20:34 Pulse Ox 97 04/12/21 20:34 BMI result Body Mass Index 34.0 Const: General: no acute distress and well developed Orientation/consciousness: patient oriented x3 HENMT: Teeth image: 1. Edentulous with slight tenderness of the gum no fluctuancy , no pus discharge Throat: Yes posterior oropharynx normal Resp: Effort & Inspection: normal respiratory effort Auscultation: clear to auscultation bilaterally Cardio: Rate: regular rate Rhythm: regular rhythm Heart sounds: S1 normal heart sound present and S2 normal heart sound present Neuro: General: patient oriented x3 MDM - Dental/Oral MDM Narrative Medical decision making narrative: Patient advised to take extra 200 mg tablet of ibuprofen along with her 600 mg make it 800 mg which she likes to take patient already has hydrocodone at home and antibiotic will discharge patient home Discharge Plan Discharge Clinical Impression: Gingivitis Patient Disposition: Home, Self-Care Instructions: Gingivitis (ED) Additional Instructions: Continue antibiotics as prescribed Ibuprofen 600-800 mg every 6 hours as needed Follow-up with dentist as scheduled Prescriptions: No Action azithromycin 250 mg tablet 250 mg PO DAILY 4 Days Qty: 4 RF: 0 azithromycin 250 mg tablet 250 mg PO DAILY 4 Days Qty: 4 RF: 0 clindamycin HCl 150 mg capsule 150 mg PO QID 7 Days Qty: 28 RF: 0 ibuprofen 600 mg tablet 600 mg PO Q6H PRN (Reason: pain) Qty: 10 RF: 0 ibuprofen 600 mg tablet 600 mg PO Q8H PRN (Reason: pain) Qty: 60 RF: 0 clindamycin HCl 300 mg capsule 300 mg PO TID Qty: 21 RF: 0 hydrocodone-acetaminophen 5-325 mg tablet 1 tab PO Q6-8H PRN (Reason: pain) Qty: 14 RF: 0 ibuprofen 800 mg tablet 800 mg PO Q6H PRN (Reason: pain) Qty: 14 RF: 0
[2021-04-12] MEDS: Ibuprofen 800 MG TABLET PO (22:51)
== END 2021-04-12 22:56 | disposition home or self-care (01) ==
PROVIDERS: Emergency Provider Internal Medicine; PCP Family Medicine
DX: K05.10 Chronic gingivitis, plaque induced (principal); K08.89 Other specified disorders of teeth and supporting structures
CPT/HCPCS: 96372; 99283; 99284; J1885

== ENCOUNTER 2021-07-05 18:59 | Emergency (ER) | payer MEDICARE, MEDICAID, SELFPAY ==
--- NOTE | ~2021-07-05 | XR_ITS ---
EXAMINATION: XR TOES, RIGHT CLINICAL INFORMATION: Trauma COMPARISON: None TECHNIQUE: 3 views right third toe. Findings; No fracture or dislocation. XR/XR toe RT min 2V IMPRESSION: No fracture or dislocation right third toe.
[2021-07-05 19:09] VITALS: BP 172/80; PULSE 95; RESP 18; TEMP 37.2; O2SAT 96; BMI 32.9
--- NOTE | 2021-07-05 20:26 | ED.LOWEXIN ---
HPI - Extremity Injury (Lower) General Chief Complaint: Extremity Injury, Lower Stated Complaint: pain stubbed toe, cracked toenail Source: patient Mode of arrival: ambulatory Limitations: no limitations History of Present Illness HPI Narrative: 51-year-old female presents with right 3rd toe pain after stubbing her toe. complaint: foot injury Onset (ago): day(s) (1) Type of Injury: blunt Place: home Severity: moderate Severity scale (1-10): 7 Relieving factors: nothing Exacerbating factors: movement and palpation Context: direct blow Associated symptoms: ambulatory Other symptoms: none Treatments prior to arrival: NSAIDS Related Data Previous Rx's Medication Instructions Recorded azithromycin 250 mg tablet 250 mg PO DAILY 4 Days #4 tab 11/29/20 azithromycin 250 mg tablet 250 mg PO DAILY 4 Days #4 tab 12/16/20 ibuprofen 600 mg tablet 600 mg PO Q8H PRN #60 tab 01/12/21 clindamycin HCl 300 mg capsule 300 mg PO TID #21 cap 03/05/21 hydrocodone 5 mg-acetaminophen 325 1 tab PO Q6-8H PRN #14 tab 04/01/21 mg tablet ibuprofen 800 mg tablet 800 mg PO Q6H PRN #14 tab 04/01/21 clindamycin HCl 150 mg capsule 150 mg PO QID 7 Days #28 cap 04/12/21 ibuprofen 600 mg tablet 600 mg PO Q6H PRN #10 tab 04/12/21 Allergies Allergy/AdvReac Type Severity Reaction Status Date / Time clarithromycin [From BIAXIN] Allergy Unknown RASH Verified 07/05/21 19:09 codeine [CODEINE] Allergy Unknown RASH Verified 07/05/21 19:09 iodine [IODINE] Allergy Unknown RASH Verified 07/05/21 19:09 Penicillins [PENICILLINS] Allergy Unknown RASH Verified 07/05/21 19:09 Sulfa (Sulfonamide Allergy Unknown RASH Verified 07/05/21 19:09 Antibiotics) [SULFA (SULFONAMIDE ANTIBIOTICS)] Review of Systems Review of Systems: Constitutional: No Fever, No Chills ENT/Mouth: No Ear Pain, No Hoarseness, No sore throat Eyes: No Eye Pain, No Swelling, No Redness, No Foreign Body Cardiovascular: No Chest Pain, No SOB Respiratory: No Cough, No Dyspnea Gastrointestinal: No Nausea, No Vomiting, No Diarrhea, No abdominal Pain Genitourinary: No Dysuria, No Hematuria Musculoskeletal: positive toe pain, No Myalgias, No Joint Swelling Skin: No Skin lacerations, No rash Neuro: No Weakness, No Numbness, No Paresthesias, No Loss of Consciousness, No Dizziness, No Headache Psych: No Anxiety/Panic, No Depression Heme/Lymph: no easy bruising, no Lymphadenopathy Endocrine: No Polyuria, No Polydipsia Yes all other systems are reviewed and are negative [facility] Past Medical History Attestation statement: The following information was validated with the patient. Source: old records reviewed Medical History Asthma Back pain Hypertension Surgical History H/O tooth extraction Social History Social History Advance Directives: No Advance Directives Information Provided: No Physical Exam Vital Signs: Vital Signs: Last Vital Signs Temp 99 F 07/05/21 19:09 Pulse 95 07/05/21 19:09 Resp 18 07/05/21 19:09 BP 172/80 H 07/05/21 19:09 Pulse Ox 96 07/05/21 19:09 BMI result Body Mass Index 32.9 Appearance: Alert. Oriented X3. No acute distress. Eyes: Pupils equal, round and reactive to light. ENT: Pharynx normal. Neck: Normal inspection. Neck supple. CVS: Normal heart rate and rhythm. Pulses normal. Respiratory: No respiratory distress. Breath sounds normal. Abdomen: Soft and nontender. Skin: Skin warm and dry. Normal skin color. Normal skin turgor. Extremities: No lower extremity edema. Full range of motion to all extremities. No visible bruising or swelling noted to digits. Brisk capillary refill equal pulses. Ambulatory. Neuro: No motor deficit. No sensory deficit. Cranial nerves 2-12 intact. Course Course Course Narrative: 51-year-old female presents 3rd toe pain after stubbing it. No visible bruising swelling or dislocation noted. X-rays pending. X-rays negative for acute findings requiring emergent intervention. Plan of care is to discharge home with Tylenol and Motrin as supportive measures. Patient verbalized understanding of and agrees plan of care discharge home. MDM - Extremity Injury (Lower) Differential Diagnosis Differential diagnosis: Likely fracture of toe Medical Records Attestation: I reviewed the patient's medical records. Imaging Data Toe x-ray: Attestation: I personally reviewed and interpreted this imaging study as follows: Radiologist's impression: EXAMINATION: XR TOES, RIGHT CLINICAL INFORMATION: Trauma COMPARISON: None TECHNIQUE: 3 views right third toe. Findings; No fracture or dislocation. XR/XR toe RT min 2V IMPRESSION: No fracture or dislocation right third toe. Discharge Plan Discharge Clinical Impression: Pain in toe Patient Disposition: Home, Self-Care Instructions: Foot Contusion (ED), R.I.C.E. Treatment (ED) Additional Instructions: You were evaluated for toe pain. X-rays are negative for acute findings requiring emergent intervention. Please use Tylenol 650 mg as needed for pain management. Continue to use your ibuprofen as directed. Rest ice and elevate the toe as needed for pain management. Thank you for choosing this emergency department for evaluation. Please follow-up with primary care physician as needed. Return to the emergency department for any new, concerning, or worsening symptoms. Prescriptions: No Action azithromycin 250 mg tablet 250 mg PO DAILY 4 Days Qty: 4 0RF Rx Instructions: start tomorrow azithromycin 250 mg tablet 250 mg PO DAILY 4 Days Qty: 4 0RF Rx Instructions: start on day 2 of therapy clindamycin HCl 150 mg capsule 150 mg PO QID 7 Days Qty: 28 0RF ibuprofen 600 mg tablet 600 mg PO Q6H PRN (Reason: pain) Qty: 10 0RF ibuprofen 600 mg tablet 600 mg PO Q8H PRN (Reason: pain) Qty: 60 0RF clindamycin HCl 300 mg capsule 300 mg PO TID Qty: 21 0RF hydrocodone-acetaminophen 5-325 mg tablet 1 tab PO Q6-8H PRN (Reason: pain) Qty: 14 0RF ibuprofen 800 mg tablet 800 mg PO Q6H PRN (Reason: pain) Qty: 14 0RF Interventions: ED Discharge Assessment Last Done: 07/05/21 22:06 Discharge Date/Time: 07/05/21 22:07
[2021-07-05] MEDS: Acetaminophen 325 MG TABLET 650 MG PO (20:45)
== END 2021-07-05 22:07 | disposition home or self-care (01) ==
PROVIDERS: Emergency Provider Internal Medicine; PCP Family Medicine
DX: M79.674 Pain in right toe(s) (principal); I10 Essential (primary) hypertension
CPT/HCPCS: 73660; 99283

== ENCOUNTER 2021-10-08 12:21 | Emergency (ER) | payer MEDICARE, MEDICAID, SELFPAY ==
--- NOTE | ~2021-10-08 | CT_ITS ---
EXAMINATION: CT ABDOMEN AND PELVIS WITHOUT CONTRAST CLINICAL INFORMATION: Abdominal pain. Rule out ureterolithiasis COMPARISON: None TECHNIQUE: Multidetector volumetric imaging was performed from the superior aspect of the liver through the pubic symphysis. Sagittal and coronal reformatted images were obtained on the technologist's workstation. This CT examination was performed using dose optimization techniques as appropriate, variously including the following: *Automated exposure control *Adjustment of mA and/or kV according to patient size (this includes techniques or standardized protocols for targeted exams where dose is matched to indication/reason for exam; i.e. extremities or head) *Use of iterative reconstruction technique DLP: 686 mGy-cm FINDINGS: LUNG BASES: Minimal subsegmental atelectasis in the right middle lobe and left lung base. LIVER, GALLBLADDER, AND BILIARY TREE: The liver is normal in size, shape, and attenuation. No focal hepatic lesion or biliary ductal dilatation is present. The gallbladder is unremarkable with no evidence of radiopaque gallstones, gallbladder wall thickening, or obvious pericholecystic inflammatory changes. PANCREAS: Unremarkable. SPLEEN: Small subcentimeter hypodense central splenic lesion on series 3-24, too small to characterize, statistically likely a small hemangioma. No other splenic lesion. Normal splenic size. ADRENAL GLANDS: Unremarkable. KIDNEYS AND URETERS: The kidneys are normal in size, shape, and attenuation. No hydronephrosis, hydroureter, or calculi seen. No perinephric stranding. BLADDER: Unremarkable. GASTROINTESTINAL TRACT: Sigmoid diverticulosis. No evidence of acute diverticulitis. No dilated bowel loops. No bowel wall thickening. Normal appendix. No ascites or free air. ABDOMINAL WALL: No significant hernia is appreciated. LYMPH NODES: No retroperitoneal or pelvic lymphadenopathy. [place] appearance of the root of the mesentery with multiple small and mildly enlarged mesenteric lymph nodes measuring up to 0.9 cm in short axis on series 3-39 also seen on coronal images 2324 and. VASCULAR: Mild fascicular calcifications. Normal caliber abdominal aorta. PELVIC VISCERA: Gynecologic structures are grossly unremarkable. No free pelvic fluid. OSSEOUS STRUCTURES: Grade 2 spondylolisthesis at L5-S1 related to chronic bilateral L5 pars defects with severe degenerative disc disease at this level and severe bilateral neural foraminal stenosis. No acute fracture. No suspicious osseous lesion. CT/CT abdomen pelvis wo con IMPRESSION: 1 No radiodense urinary tract calculi. No hydronephrosis. 2. Hazy/azalia appearance of the mesentery with mesenteric lymphadenopathy, nonspecific in etiology with broad differential considerations which include mesenteric panniculitis. No findings of enteritis or specific findings of acute pancreatitis as primary etiologies. No findings of cirrhosis. Idiopathic etiology or lymphoproliferative process also considerations. 3. Sigmoid diverticulosis. No evidence of acute diverticulitis. 4. Grade 2 spondylolisthesis at L5-S1 related bilateral pars defects with severe degenerative disc disease.
[2021-10-08 14:58] VITALS: BP 154/79; PULSE 95; RESP 18; TEMP 36.9; O2SAT 97; BMI 29.9
[2021-10-08 15:16] LABS: MANUAL DIFF FLAG NO
[2021-10-08 15:17] LABS: Appearance Urine CLEAR; Color Urine YELLOW; Glucose Urine UA NEG (NEG); Leukocyte Esterase Urine NEG (NEG); Nitrite Urine NEG (NEG); UACC Culture Trigger NO; Urine Blood 2+ (NEG); Urine Ketones >=80 MG/DL (NEG); Urine Protein NEG (NEG-TRACE)
[2021-10-08 15:19] LABS: Basophils Absolute Auto 0.1 X10*3/uL (0.0-0.2); Basophils Percent Auto 0.4 % (0-2); Eosinophils Absolute Auto 0.1 X10*3/uL (0.0-0.4); Eosinophils Percent Auto 0.9 % (0-4); Hematocrit 44.3 % (37.0-47.0); Hemoglobin 14.4 g/dl (12.0-16.0); Imm Gran Abs Auto 0.04 X10*3/uL (0.00-0.03); Imm Gran Pct Auto 0.3 % (0.0-0.4); Lymphocytes Absolute Auto 1.8 X10*3/uL (1.2-4.9); Lymphocytes Percent Auto 15.6 % (20-40); Mean Corpuscular HGB Conc 32.5 g/dl (31.0-35.0); Mean Platelet Volume 8.8 fL (9.4-12.3); Monocytes Absolute Auto 0.7 X10*3/uL (0.1-1.2); Neutrophils Percent Auto 76.8 % (45-73); Platelet Count 450 X10*3/uL (160-400); Red Blood Count 5.15 X10*6/uL (4.20-5.50); Red Cell Distribution Width 13.3 % (11.0-16.0); UPreg QC Valid YES; Urine Pregnancy NEGATIVE (NEGATIVE); White Blood Count 11.8 X10*3/uL (4.8-10.8)
[2021-10-08 15:26] LABS: Squamous Epithelial Cell Urine 1+ /LPF; WBC Urine 0-2 /HPF (0-4)
[2021-10-08 15:27] LABS: Amorphous Sediment Urine 1+ /LPF
[2021-10-08 15:38] LABS: Alanine Aminotransferase 16 U/L (0-31); Albumin Level 4.6 g/dL (3.5-5.0); Alkaline Phosphatase 54 U/L (39-117); Anion Gap 14 (12-20); Aspartate Amino Transferase 15 U/L (5-31); Bilirubin Direct 0.2 mg/dL (0.0-0.5); Bilirubin Total 0.5 mg/dL (0.0-1.0); Blood Urea Nitrogen 10 mg/dL (9-16); Calcium 9.8 mg/dL (8.4-10.2); Carbon Dioxide 27 mmol/L (22-29); Chloride 100 mmol/L (96-108); Creatinine Clr Calc Pharmacy 100.8; Estimated Glomerular Filt Rate > 60; Glucose Random 103 mg/dL (60-115); Potassium 4.5 mmol/L (3.3-5.1); Sodium 136 mmol/L (135-145); Total Protein 7.7 g/dL (6.5-8.0)
[2021-10-08 18:46] VITALS: BP 157/86; PULSE 90; RESP 16; TEMP 36.8; O2SAT 98
--- NOTE | 2021-10-08 19:01 | ED_ITS ---
HPI - General Adult General Chief complaint: Abdominal Pain Stated complaint: Abd pain Time Seen by Provider: 10/08/21 18:48 Source: patient Mode of arrival: ambulatory Limitations: no limitations History of Present Illness HPI narrative: Patient comes to the emergency room complaining of nausea and abdominal disco mfort, patient was sent in by PCP. Patient states that she was told that she is dehydrated. Patient denies vomiting or diarrhea. Patient denies fever chills. Patient denies dysuria, states that she has had questionably hematuria. Patient states that she may have had vaginal bleeding, unsure if she is or going through menopause Related Data Previous Rx's Medication Instructions Recorded azithromycin 250 mg tablet 250 mg PO DAILY 4 days #4 tabs 11/29/20 azithromycin 250 mg tablet 250 mg PO DAILY 4 days #4 tabs 12/16/20 ibuprofen 600 mg tablet 600 mg PO Q8H PRN pain #60 tabs 01/12/21 clindamycin HCl 300 mg capsule 300 mg PO TID #21 caps 03/05/21 hydrocodone 5 mg-acetaminophen 325 1 tab PO Q6-8H PRN pain #14 tabs 04/01/21 mg tablet ibuprofen 800 mg tablet 800 mg PO Q6H PRN pain #14 tabs 04/01/21 clindamycin HCl 150 mg capsule 150 mg PO QID 7 days #28 caps 04/12/21 ibuprofen 600 mg tablet 600 mg PO Q6H PRN pain #10 tabs 04/12/21 dicyclomine 10 mg capsule 10 mg PO TID PRN abdominal 10/08/21 discomfort #10 caps Allergies Allergy/AdvReac Type Severity Reaction Status Date / Time clarithromycin [From BIAXIN] Allergy Unknown RASH Verified 07/05/21 19:09 codeine [CODEINE] Allergy Unknown RASH Verified 07/05/21 19:09 iodine [IODINE] Allergy Unknown RASH Verified 07/05/21 19:09 Penicillins [PENICILLINS] Allergy Unknown RASH Verified 07/05/21 19:09 Sulfa (Sulfonamide Allergy Unknown RASH Verified 07/05/21 19:09 Antibiotics) [SULFA (SULFONAMIDE ANTIBIOTICS)] Review of Systems Review of Systems: Constitutional : No Weight loss, No Fever, No Chills, No Night Sweats, No Fatigue, No Malaise ENT/Mouth : No Hearing loss, No Ear Pain, No Nasal Congestion, No Sinus Pain, No Hoarseness, No sore throat, No Rhinorrhea, No Swallowing Difficulty Eyes: No Eye Pain, No Swelling, No Redness, No Foreign Body, No Discharge, No Vision Changes Cardiovascular : No Chest Pain, No SOB, No Dyspnea on Exertion, No Orthopnea, No Edema, No Palpitations Respiratory : No Cough, No Sputum, No Wheezing, No Smoke Exposure, No Dyspnea Gastrointestinal : Complaining of Nausea, No Vomiting, No Diarrhea, No Constipation, complaining of mild abdominal discomfort, No Hematochezia, No Melena Genitourinary : no irregular bleeding, No Dysuria, No Urinary Frequency, No Hematuria, No Urinary Incontinence, No Urgency, No Flank Pain, No Urinary Flow Changes, No Hesitancy Musculoskeletal : No joint pain, No Myalgias, No Joint Swelling Skin : No Skin Lesions, No rash Neuro : No Weakness, No Numbness, No Paresthesias, No Loss of Consciousness, No Dizziness, No Headache Psych : No Anxiety/Panic, No Depression, No SI/HI/AH/VH, No Social Issues, Heme/Lymph: No Bruising, No Bleeding,No Lymphadenopathy Endocrine : No Polyuria, No Polydipsia, No Temperature Intolerance [facility] Past Medical History Surgical History H/O tooth extraction Social History Social History Advance Directives: No Advance Directives Information Provided: No Physical Exam ED Vital Signs: Vital Signs - 24 hr 10/08/21 14:58 10/08/21 18:46 Temperature 98.4 F 98.3 F Pulse Rate 95 90 Respiratory Rate 18 16 Blood Pressure 154/79 H 157/86 H Pulse Oximetry 97 98 Oxygen Delivery Method Room Air Room Air BMI result Body Mass Index 29.9 Const Other: Appearance: Alert. Oriented X3. No acute distress. Eyes: Pupils equal, round and reactive to light. ENT: Pharynx normal. Neck: Normal inspection. Neck supple. No lymph nodes noted. No crepitus CVS: Normal heart rate and rhythm. Pulses normal. Normal S1 and S2 Respiratory: No respiratory distress. Breath sounds normal. No Wheezing. No rales Abdomen: Soft and nontender. No rigidity. No distention. Back: Negative CVA tenderness Skin: Skin warm and dry. Normal skin color. Normal skin turgor. Extremities: No lower extremity edema. No Lacerations. No Rash Neuro: Oriented X 3. No motor deficit. No sensory deficit. Moving all extremities. No slurred speech. CN 2 through 12 grossly intact Psych: calm, cooperative, normal affect Course Course Course Narrative: Patient was giving IV fluids, feeling better. Discussed the labs and imaging with the patient, no acute findings. Patient instructed to follow-up with her primary care physician Medical Decision Making Lab Data Result diagrams: 10/08/21 15:07 10/08/21 15:07 Labs: Lab Results 10/08/21 10/08/21 10/08/21 Range/Units 15:07 15:07 15:07 WBC 11.8 H (4.8-10.8) X10*3/uL RBC 5.15 (4.20-5.50) X10*6/uL Hgb 14.4 (12.0-16.0) g/dl Hct 44.3 (37.0-47.0) % MCV 86.0 (80.0-98.0) fL MCH 28.0 (27.0-33.0) pg MCHC 32.5 (31.0-35.0) g/dl RDW 13.3 (11.0-16.0) % Plt Count 450 H (160-400) X10*3/uL MPV 8.8 L (9.4-12.3) fL Immature Gran % (Auto) 0.3 (0.0-0.4) % Neut % (Auto) 76.8 H (45-73) % Lymph % (Auto) 15.6 L (20-40) % [place] % (Auto) 6.0 (2-11) % Eos % (Auto) 0.9 (0-4) % Baso % (Auto) 0.4 (0-2) % Lymph # (Auto) 1.8 (1.2-4.9) X10*3/uL [place] # (Auto) 0.7 (0.1-1.2) X10*3/uL Eos # (Auto) 0.1 (0.0-0.4) X10*3/uL Baso # (Auto) 0.1 (0.0-0.2) X10*3/uL Abs Immat Gran (auto) 0.04 H (0.00-0.03) X10*3/uL Absolute Neuts (auto) 9.0 H (2.0-8.3) x10*3/uL Absolute Nucleated RBC 0.000 (0.0-0.012) X10*3/uL Nucleated RBC % (auto) 0.0 (0.0-0.2) /100WBC Sodium 136 (135-145) mmol/L Potassium 4.5 (3.3-5.1) mmol/L Chloride 100 (96-108) mmol/L Carbon Dioxide 27 (22-29) mmol/L Anion Gap 14 (12-20) BUN 10 (9-16) mg/dL Creatinine 0.63 (0.5-1.4) mg/dL Estim Creat Clear Calc 100.8 Estimated GFR > 60 Random Glucose 103 (60-115) mg/dL Calcium 9.8 (8.4-10.2) mg/dL Total Bilirubin 0.5 (0.0-1.0) mg/dL Direct Bilirubin 0.2 (0.0-0.5) mg/dL AST 15 (5-31) U/L ALT 16 (0-31) U/L Alkaline Phosphatase 54 (39-117) U/L Total Protein 7.7 (6.5-8.0) g/dL Albumin 4.6 (3.5-5.0) g/dL Urine Color YELLOW Urine Appearance CLEAR Urine pH 6.0 (5.0-8.0) Ur Specific [place] 1.020 (1.005-1.025) Urine Protein NEG (NEG-TRACE) MG/DL Urine Glucose (UA) NEG (NEG) MG/DL Urine Ketones >=80 (NEG) MG/DL Urine Blood 2+ H (NEG) Urine Nitrite NEG (NEG) Ur Leukocyte Esterase NEG (NEG) Urine RBC 1-4 (0) /HPF Urine WBC 0-2 (0-4) /HPF Ur Squamous Epith Cells 1+ /LPF Amorphous Sediment 1+ /LPF Urine Bacteria NONE /LPF Urine Test (NEGATIVE) 10/08/21 Range/Units 15:07 WBC (4.8-10.8) X10*3/uL RBC (4.20-5.50) X10*6/uL Hgb (12.0-16.0) g/dl Hct (37.0-47.0) % MCV (80.0-98.0) fL MCH (27.0-33.0) pg MCHC (31.0-35.0) g/dl RDW (11.0-16.0) % Plt Count (160-400) X10*3/uL MPV (9.4-12.3) fL Immature Gran % (Auto) (0.0-0.4) % Neut % (Auto) (45-73) % Lymph % (Auto) (20-40) % [place] % (Auto) (2-11) % Eos % (Auto) (0-4) % Baso % (Auto) (0-2) % Lymph # (Auto) (1.2-4.9) X10*3/uL [place] # (Auto) (0.1-1.2) X10*3/uL Eos # (Auto) (0.0-0.4) X10*3/uL Baso # (Auto) (0.0-0.2) X10*3/uL Abs Immat Gran (auto) (0.00-0.03) X10*3/uL Absolute Neuts (auto) (2.0-8.3) x10*3/uL Absolute Nucleated RBC (0.0-0.012) X10*3/uL Nucleated RBC % (auto) (0.0-0.2) /100WBC Sodium (135-145) mmol/L Potassium (3.3-5.1) mmol/L Chloride (96-108) mmol/L Carbon Dioxide (22-29) mmol/L Anion Gap (12-20) BUN (9-16) mg/dL Creatinine (0.5-1.4) mg/dL Estim Creat Clear Calc Estimated GFR Random Glucose (60-115) mg/dL Calcium (8.4-10.2) mg/dL Total Bilirubin (0.0-1.0) mg/dL Direct Bilirubin (0.0-0.5) mg/dL AST (5-31) U/L ALT (0-31) U/L Alkaline Phosphatase (39-117) U/L Total Protein (6.5-8.0) g/dL Albumin (3.5-5.0) g/dL Urine Color Urine Appearance Urine pH (5.0-8.0) Ur Specific [place] (1.005-1.025) Urine Protein (NEG-TRACE) MG/DL Urine Glucose (UA) (NEG) MG/DL Urine Ketones (NEG) MG/DL Urine Blood (NEG) Urine Nitrite (NEG) Ur Leukocyte Esterase (NEG) Urine RBC (0) /HPF Urine WBC (0-4) /HPF Ur Squamous Epith Cells /LPF Amorphous Sediment /LPF Urine Bacteria /LPF Urine Test NEGATIVE (NEGATIVE) Imaging Data CT scan - abdomen: Radiologist's impression: COMPARISON: None TECHNIQUE: Multidetector volumetric imaging was performed from the superior aspect of the liver through the pubic symphysis. Sagittal and coronal reformatted images were obtained on the technologist's workstation. This CT examination was performed using dose optimization techniques as appropriate, variously including the following: *Automated exposure control *Adjustment of mA and/or kV according to patient size (this includes techniques or standardized protocols for targeted exams where dose is matched to indication/reason for exam; i.e. extremities or head) *Use of iterative reconstruction technique DLP: 686 mGy-cm FINDINGS: LUNG BASES: Minimal subsegmental atelectasis in the right middle lobe and left lung base. LIVER, GALLBLADDER, AND BILIARY TREE: The liver is normal in size, shape, and attenuation. No focal hepatic lesion or biliary ductal dilatation is present. The gallbladder is unremarkable with no evidence of radiopaque gallstones, gallbladder wall thickening, or obvious pericholecystic inflammatory changes. PANCREAS: Unremarkable. SPLEEN: Small subcentimeter hypodense central splenic lesion on series 3-24, too small to characterize, statistically likely a small hemangioma. No other splenic lesion. Normal splenic size. ADRENAL GLANDS: Unremarkable. KIDNEYS AND URETERS: The kidneys are normal in size, shape, and attenuation. No hydronephrosis, hydroureter, or calculi seen. No perinephric stranding. BLADDER: Unremarkable. GASTROINTESTINAL TRACT: Sigmoid diverticulosis. No evidence of acute diverticulitis. No dilated bowel loops. No bowel wall thickening. Normal appendix. No ascites or free air. ABDOMINAL WALL: No significant hernia is appreciated. LYMPH NODES: No retroperitoneal or pelvic lymphadenopathy. [place] appearance of the root of the mesentery with multiple small and mildly enlarged mesenteric lymph nodes measuring up to 0.9 cm in short axis on series 3-39 also seen on coronal images 2324 and. VASCULAR: Mild fascicular calcifications. Normal caliber abdominal aorta. PELVIC VISCERA: Gynecologic structures are grossly unremarkable. No free pelvic fluid. OSSEOUS STRUCTURES: Grade 2 spondylolisthesis at L5-S1 related to chronic bilateral L5 pars defects with severe degenerative disc disease at this level and severe bilateral neural foraminal stenosis. No acute fracture. No suspicious osseous lesion. CT/CT abdomen pelvis wo con IMPRESSION: 1 No radiodense urinary tract calculi. No hydronephrosis. 2. Hazy/az[place] appearance of the mesentery with mesenteric lymphadenopathy, nonspecific in etiology with broad differential considerations which include mesenteric panniculitis. No findings of enteritis or specific findings of acute pancreatitis as primary etiologies. No findings of cirrhosis. Idiopathic etiology or lymphoproliferative process also considerations. 3. Sigmoid diverticulosis. No evidence of acute diverticulitis. 4. Grade 2 spondylolisthesis at L5-S1 related bilateral pars defects with severe degenerative disc disease. Discharge Plan Discharge Clinical Impression: Abdominal pain Patient Disposition: Home, Self-Care Instructions: Abdominal Pain (ED) Additional Instructions: Please follow-up with your primary care physician tomorrow. If you have any worsening or new symptoms, please return to the emergency room or call 911 Prescriptions: New dicyclomine 10 mg capsule 10 mg PO TID PRN (Reason: abdominal discomfort) Qty: 10 0RF No Action azithromycin 250 mg tablet 250 mg PO DAILY 4 Days Qty: 4 0RF Rx Instructions: start tomorrow azithromycin 250 mg tablet 250 mg PO DAILY 4 Days Qty: 4 0RF Rx Instructions: start on day 2 of therapy clindamycin HCl 150 mg capsule 150 mg PO QID 7 Days Qty: 28 0RF ibuprofen 600 mg tablet 600 mg PO Q6H PRN (Reason: pain) Qty: 10 0RF ibuprofen 600 mg tablet 600 mg PO Q8H PRN (Reason: pain) Qty: 60 0RF clindamycin HCl 300 mg capsule 300 mg PO TID Qty: 21 0RF hydrocodone-acetaminophen 5-325 mg tablet 1 tab PO Q6-8H PRN (Reason: pain) Qty: 14 0RF ibuprofen 800 mg tablet 800 mg PO Q6H PRN (Reason: pain) Qty: 14 0RF
[2021-10-08] MEDS: 0.9 % Sodium Chloride 1,000 ML 999 ML IVCONT (19:23)
[2021-10-08 20:44] VITALS: BP 146/92; PULSE 86; RESP 18; O2SAT 97
== END 2021-10-08 21:17 | disposition home or self-care (01) ==
PROVIDERS: Emergency Provider Emergency Medicine; PCP Family Medicine
DX: R10.9 Unspecified abdominal pain (principal)
CPT/HCPCS: 36415; 74176; 80048; 80076; 81001; 81025; 85025; 96360; 99283; 99284

== ENCOUNTER 2021-10-30 09:48 | Emergency (ER) | payer MEDICARE, MEDICAID, SELFPAY ==
[2021-10-30 10:34] VITALS: BP 173/92; PULSE 100; RESP 19; TEMP 36.6; O2SAT 96; BMI 29.9
--- NOTE | 2021-10-30 12:29 | ED_ITS ---
HPI - General Adult General Chief complaint: General Medical Stated complaint: Vaginal issues Time Seen by Provider: 10/30/21 12:27 Source: patient Mode of arrival: ambulatory Limitations: no limitations History of Present Illness HPI narrative: 51-year-old female presents for growths inside her vagina and dysuria. Patient has not had any vaginal bleeding, no abdominal pain. Patient states 2 days ago she was intimate with her boyfriend, and she had dyspareunia, boyfriend stated he noticed at that time two finger-like projections growing out of the patient's vagina no fevers, no hematuria, no abdominal pain, no vomiting, no nausea, no vaginal bleeding, no vaginal discharge, no concerns for STDs, no chest pain, no shortness of breath, no focal neurological symptoms Related Data Previous Rx's Medication Instructions Recorded azithromycin 250 mg tablet 250 mg PO DAILY 4 days #4 tabs 11/29/20 azithromycin 250 mg tablet 250 mg PO DAILY 4 days #4 tabs 12/16/20 ibuprofen 600 mg tablet 600 mg PO Q8H PRN pain #60 tabs 01/12/21 clindamycin HCl 300 mg capsule 300 mg PO TID #21 caps 03/05/21 hydrocodone 5 mg-acetaminophen 325 1 tab PO Q6-8H PRN pain #14 tabs 04/01/21 mg tablet ibuprofen 800 mg tablet 800 mg PO Q6H PRN pain #14 tabs 04/01/21 clindamycin HCl 150 mg capsule 150 mg PO QID 7 days #28 caps 04/12/21 ibuprofen 600 mg tablet 600 mg PO Q6H PRN pain #10 tabs 04/12/21 dicyclomine 10 mg capsule 10 mg PO TID PRN abdominal 10/08/21 discomfort #10 caps nitrofurantoin macrocrystal 100 mg 100 mg PO BID 5 days #10 caps 10/30/21 capsule Allergies Allergy/AdvReac Type Severity Reaction Status Date / Time clarithromycin [From BIAXIN] Allergy Unknown RASH Verified 07/05/21 19:09 codeine [CODEINE] Allergy Unknown RASH Verified 07/05/21 19:09 iodine [IODINE] Allergy Unknown RASH Verified 07/05/21 19:09 Penicillins [PENICILLINS] Allergy Unknown RASH Verified 07/05/21 19:09 Sulfa (Sulfonamide Allergy Unknown RASH Verified 07/05/21 19:09 Antibiotics) [SULFA (SULFONAMIDE ANTIBIOTICS)] Review of Systems Constitutional: Constitutional: Denies body ache(s), Denies chills, Denies fatigue, Denies fever(s), Denies malaise and Denies weakness Eyes: Eyes: Denies diplopia Cardiovascular: Cardiovascular: Denies chest pain, Denies syncope, Denies leg edema, Denies lightheadedness, Denies Loss of Consciousness, Denies palpitations and Denies dyspnea Respiratory: Respiratory: Denies chest congestion, Denies cough and Denies dyspnea Gastrointestinal: Gastrointestinal: Denies abdominal pain, Denies hematochezia, Denies constipation, Denies diarrhea and Denies vomiting Genitourinary: Genitourinary: Denies abnormal vaginal bleeding, Denies hematuria, Denies urinary frequency, Reports dyspareunia, Reports dysuria, Denies pelvic pain, Reports urinary urgency, Denies vaginal discharge and Denies vaginal odor Musculoskeletal: Musculoskeletal: Reports no additional musculoskeletal complaints Neurologic: Denies confusion, Denies syncope and Denies weakness Psychiatric: Psychiatric: Denies anxiety, Denies confusion and Denies depression Endocrine: Endocrine: Denies fatigue and Denies palpitations PMFSH Past Medical History Medical History Asthma Back pain Hypertension Surgical History H/O tooth extraction Social History Social History Advance Directives: No Advance Directives Information Provided: Yes Physical Exam ED Vital Signs: Vital Signs - 24 hr 10/30/21 10:34 Temperature 98 F Pulse Rate 100 Respiratory Rate 19 Blood Pressure 173/92 H Pulse Oximetry 96 Oxygen Delivery Method Room Air BMI result Body Mass Index 29.9 Const General: No confusion Nutritional Appearance: well nourished Orientation/consciousness: No confusion Limitations: no limitations Eyes Conjunctivae: conjunctivae normal Pupils: Equal, round and reactive pupils present EOM: EOMs intact bilaterally Neck Neck: Yes full ROM, Yes no lymphadenopathy and Yes supple Resp Effort & Inspection: normal respiratory effort and able to speak in complete sentences Auscultation: clear to auscultation bilaterally, no crackles, no rales, no rhonchi and no wheezes Cardio Rate: regular rate Rhythm: regular rhythm Heart sounds: S1 normal heart sound present and S2 normal heart sound present GI Inspection: Yes normal to inspection Palpation (GI): Soft to palpation, nontender, no guarding and not rigid Percussion: Yes normal to percussion Auscultation: normal bowel sounds Other: speculum exam was not done. Parting the introitus with my fingers I could see two finger-like projections that look like polyps just inside of patient's vagina. General: Yes no CVA tenderness Back/Spine/Pelvis Back: no CVA tenderness Skin General skin exam: no rashes or lesions noted Neuro General: No confusion Cranial nerves: Yes Equal, round and reactive pupils present Extrem General: Yes normal to inspection and Yes full ROM Psych Appearance: grossly normal Affect: normal affect Attitude: cooperative Thought process: Normal thought process present Course Course Course Narrative: 51-year-old female presents with finger-like masses inside of her vagina with dysuria will get urine. Consulted Dr. Sunshine, OBGYN, who stated that this is an outpatient visit, no emergent imaging is needed. He will see and evaluate her in his office patient positive for UTI, will treat with nitrofurantoin as patient has an allergy to sulfa and penicillin Medical Decision Making Lab Data Labs: Lab Results 10/30/21 Range/Units 13:08 Urine Color YELLOW Urine Appearance CLEAR Urine pH 5.5 (5.0-8.0) Ur Specific [place] 1.020 (1.005-1.025) Urine Protein NEG (NEG-TRACE) MG/DL Urine Glucose (UA) NEG (NEG) MG/DL Urine Ketones 15 (NEG) MG/DL Urine Blood 1+ H (NEG) Urine Nitrite NEG (NEG) Ur Leukocyte Esterase 1+ H (NEG) Urine RBC 5-9 H (0) /HPF Urine WBC 1-4 (0-4) /HPF Ur Squamous Epith Cells 2+ /LPF Urine Bacteria NONE /LPF Discharge Plan Discharge Clinical Impression: Vaginal polyp, UTI (urinary tract infection) Patient Disposition: Home, Self-Care Instructions: Urinary Tract Infection in Women (ED) Additional Instructions: I have referred you to our OBGYN, Dr Sunshine, his office should be calling you, if you do not hear from him, please call him in the following number [phone] he will see and evaluate you in his office for the growths in your vagina please take the antibiotics I prescribed for 5 days please return to emergency room if you have fevers or back pain, or any other new or concerning symptoms Prescriptions: New nitrofurantoin macrocrystal 100 mg capsule 100 mg PO BID 5 Days Qty: 10 0RF Rx Instructions: must administer with a meal/food No Action azithromycin 250 mg tablet 250 mg PO DAILY 4 Days Qty: 4 0RF Rx Instructions: start tomorrow azithromycin 250 mg tablet 250 mg PO DAILY 4 Days Qty: 4 0RF Rx Instructions: start on day 2 of therapy clindamycin HCl 150 mg capsule 150 mg PO QID 7 Days Qty: 28 0RF ibuprofen 600 mg tablet 600 mg PO Q6H PRN (Reason: pain) Qty: 10 0RF ibuprofen 600 mg tablet 600 mg PO Q8H PRN (Reason: pain) Qty: 60 0RF clindamycin HCl 300 mg capsule 300 mg PO TID Qty: 21 0RF hydrocodone-acetaminophen 5-325 mg tablet 1 tab PO Q6-8H PRN (Reason: pain) Qty: 14 0RF ibuprofen 800 mg tablet 800 mg PO Q6H PRN (Reason: pain) Qty: 14 0RF dicyclomine 10 mg capsule 10 mg PO TID PRN (Reason: abdominal discomfort) Qty: 10 0RF Referrals: Pollo Sunshine MD [Physician] -
[2021-10-30 13:14] LABS: Appearance Urine CLEAR; Color Urine YELLOW; Glucose Urine UA NEG (NEG); Leukocyte Esterase Urine 1+ (NEG); Nitrite Urine NEG (NEG); PH 5.5 (5.0-8.0); UACC Culture Trigger YES; Urine Blood 1+ (NEG); Urine Ketones 15 MG/DL (NEG); Urine Protein NEG (NEG-TRACE)
[2021-10-30 13:30] LABS: Squamous Epithelial Cell Urine 2+ /LPF
== END 2021-10-30 14:18 | disposition home or self-care (01) ==
PROVIDERS: Physician Assistant; Emergency Provider Emergency Medicine; PCP Family Medicine
DX: N84.2 Polyp of vagina (principal); R30.0 Dysuria; N39.0 Urinary tract infection, site not specified; Z79.899 Other long term (current) drug therapy
CPT/HCPCS: 81001; 87086; 99282; 99283

== ENCOUNTER 2021-11-05 09:27 | Outpatient (REF) | payer MEDICARE, MEDICAID, SELFPAY ==
[2021-11-05 11:05] LABS: Hematocrit 43.4 % (37.0-47.0); Hemoglobin 14.1 g/dl (12.0-16.0); Mean Corpuscular HGB Conc 32.5 g/dl (31.0-35.0); Mean Corpuscular Volume 86.3 fL (80.0-98.0); Platelet Count 418 X10*3/uL (160-400); Red Blood Count 5.03 X10*6/uL (4.20-5.50); Red Cell Distribution Width 13.2 % (11.0-16.0); White Blood Count 11.5 X10*3/uL (4.8-10.8)
[2021-11-05 11:51] LABS: HCG Quantitative < 2 mIU/mL; TSH reflex Free T4 1.34 uIU/mL (0.32-4.0)
[2021-11-05 13:35] LABS: CT PCR NOT DETECTED (Not Detect.); NG PCR NOT DETECTED (Not Detect.)
[2021-11-06 23:46] LABS: Lutenizing Hormone 27.4 mIU/mL
[2021-11-11 23:27] LABS: HPV mRNA E6/E7 rflx Not Detected (Not Detected)
== END 2021-11-05 09:28 | disposition home or self-care (01) ==
LOC: HO.LAB 09:27
PROVIDERS: PCP Family Medicine; Visit Provider Obstetrics & Gynecology
DX: Z01.411 Encounter for gynecological examination (general) (routine) with abnormal findings (principal); Z11.51 Encounter for screening for human papillomavirus (HPV); N84.1 Polyp of cervix uteri; N93.9 Abnormal uterine and vaginal bleeding, unspecified; R31.29 Other microscopic hematuria; Z20.2 Contact with and (suspected) exposure to infections with a predominantly sexual mode of transmission
CPT/HCPCS: 36415; 83001; 83002; 84443; 84702; 85027; 87086; 87491; 87591; 87624; 88142; 99202

== ENCOUNTER 2021-11-08 10:41 | Outpatient (REF) | payer MEDICARE, MEDICAID, SELFPAY ==
--- NOTE | ~2021-11-08 | US_ITS ---
EXAMINATION: US PELVIS CLINICAL INFORMATION: Abnormal uterine/vaginal bleeding. Last menstrual period April 2021, uncertain of the exact dates. COMPARISON: CT abdomen/pelvis 10/08/2021. TECHNIQUE: Ultrasound of the pelvis is performed using both transabdominal and transvaginal transducers along with Doppler. Transvaginal imaging is performed due to inadequate visualization transabdominally. FINDINGS: The uterus is anteverted and anteflexed measuring 8.4 x 4.5 x 5.4 cm. There is a 1.8 x 1.3 x 1.5 cm intramural lesion in the posterior aspect of the upper uterine body, statistically most likely to represent a fibroid. The endometrium measures 0.4 cm in thickness without discrete focal abnormality. Subcentimeter nabothian cysts overlie the cervix. The right ovary measures 3.4 x 3 x 3 cm, volume of 16 mL. The left ovary measures 2.7 x 1.3 x 2.5 cm, volume of 4.4 mL. Differences in size are likely related with the presence of a 2.5 cm cyst in the right ovary for which no imaging follow-up is recommended. There is preserved flow to both ovaries on color Doppler at the moment of this examination. There are nonspecific hyperechoic foci in the left ovary. Trace amount of free fluid, likely physiologic. US/US pelvic and transvaginal IMPRESSION: 1. There is a 1.8 cm posterior intramural uterine fibroid. 2. No discrete endometrial abnormality in this examination, however if clinically deemed appropriate evaluation with an MR of the pelvis with and without intravenous contrast could be obtained. 3. No evidence of ovarian torsion at the moment of this examination. 4. Nonspecific hyperechoic foci in the left ovary, without a clear CT correlate on 10/08/2021, recommend an interval follow-up examination to reassess.
== END 2021-11-08 10:42 | disposition home or self-care (01) ==
LOC: HO.US 10:41
PROVIDERS: PCP Family Medicine; Visit Provider Obstetrics & Gynecology
DX: N93.9 Abnormal uterine and vaginal bleeding, unspecified (principal)
CPT/HCPCS: 76830; 76856

== ENCOUNTER 2021-11-14 09:10 | Outpatient (REF) | payer MEDICARE, MEDICAID, SELFPAY ==
[2021-11-15 08:26] LABS: CA-125 7 U/mL (<35)
== END 2021-11-14 09:11 | disposition home or self-care (01) ==
LOC: HO.LAB 09:10
PROVIDERS: PCP Family Medicine; Visit Provider Obstetrics & Gynecology
DX: N83.299 Other ovarian cyst, unspecified side (principal); N84.1 Polyp of cervix uteri; N93.9 Abnormal uterine and vaginal bleeding, unspecified
CPT/HCPCS: 36415; 86304; 99212

== ENCOUNTER 2021-11-15 08:03 | Day surgery (SDC) | payer MEDICARE, MEDICAID, SELFPAY ==
--- NOTE | 2021-11-13 14:44 | HO.ANESPROP2 ---
Documented by User: Cortney Phan NP 11/13/21 14:49 HPI - Anesthesia Eval Consult details Narrative: 51yo F for D&C Hysteroscopy,possible polypectomy, possible myomectomy PMFSH Active Problems Active Problems: All Active Problems (Updated 11/05/21 @ 09:45 by Pollo Sunshine MD) Microscopic hematuria (Acute) Abnormal uterine bleeding (Acute) Endocervical polyp (Acute) Hypertension (Acute) Back pain (Acute) Asthma (Acute) Past Medical History Medical History Asthma Back pain Hypertension Spina bifida Vertigo Family History Family History Maternal Aunt Breast CA Surgical History Surgical History H/O tooth extraction Social History Social History Patient Tobacco Use Status: Never used Tobacco Second Hand Smoke Exposure: No Use of substances other than those prescribed or required for medical reasons: No Are you DNR?: No Advance Directives: No Advance Directives Information Provided: Yes Advance Directives on File: No Meds Allergies Allergy/AdvReac Type Severity Reaction Status Date / Time clarithromycin [From BIAXIN] Allergy Unknown RASH Verified 11/05/21 09:12 codeine [CODEINE] Allergy Unknown RASH Verified 11/05/21 09:12 iodine [IODINE] Allergy Unknown RASH Verified 11/05/21 09:12 Penicillins [PENICILLINS] Allergy Unknown RASH Verified 11/05/21 09:12 Sulfa (Sulfonamide Allergy Unknown RASH Verified 11/05/21 09:12 Antibiotics) [SULFA (SULFONAMIDE ANTIBIOTICS)] Home Medications Medication Instructions Recorded Confirmed Last Taken Type budesonide-formoterol HFA 160 2 puff PO DAILY 11/05/21 Unknown History mcg-4.5 mcg/actuation aerosol inhaler (Symbicort) paroxetine HCl 10 mg tablet 10 mg PO DAILY 11/14/21 Unknown History Exam Exam Date and Time: November 13, 2021 1444 Pertinent Lab Results Pertinent Lab Results: Laboratory Tests 10/08/21 11/05/21 15:07 10:37 WBC 11.5 H Hgb 14.1 Hct 43.4 Plt Count 418 H Sodium 136 Potassium 4.5 Chloride 100 Carbon Dioxide 27 BUN 10 Creatinine 0.63 Assessment and Plan Assessment Anesthesia Assessment: Chart Reviewed Documented by User: Manish Ames MD 11/15/21 08:41 PMF Past Medical History Medical History Asthma Back pain Hypertension Spina bifida Vertigo Family History Family History Maternal Aunt Breast CA Family history of problems with anesthesia: No Surgical History Surgical History H/O tooth extraction History of Problems with Anesthesia: Unobtainable Social History Social History Patient Tobacco Use Status: Never used Tobacco Second Hand Smoke Exposure: No Use of substances other than those prescribed or required for medical reasons: No Are you DNR?: No Advance Directives: No Advance Directives Information Provided: Yes Advance Directives on File: No Meds Allergies Allergy/AdvReac Type Severity Reaction Status Date / Time clarithromycin [From BIAXIN] Allergy Unknown RASH Verified 11/05/21 09:12 codeine [CODEINE] Allergy Unknown RASH Verified 11/05/21 09:12 iodine [IODINE] Allergy Unknown RASH Verified 11/05/21 09:12 Penicillins [PENICILLINS] Allergy Unknown RASH Verified 11/05/21 09:12 Sulfa (Sulfonamide Allergy Unknown RASH Verified 11/05/21 09:12 Antibiotics) [SULFA (SULFONAMIDE ANTIBIOTICS)] Home Medications Medication Instructions Recorded Confirmed Last Taken Type budesonide-formoterol HFA 160 2 puff PO DAILY 11/05/21 Unknown History mcg-4.5 mcg/actuation aerosol inhaler (Symbicort) paroxetine HCl 10 mg tablet 10 mg PO DAILY 11/14/21 Unknown History Exam Airway Mallampati Class: II TM Dist: >3cm Neck ROM: Full Denture: Upper and Lower Heart: rrr Lungs: clear Assessment and Plan Final Anesthetic Review Family History of Problems with Anesthesia: No History of Problems with Anesthesia: Unobtainable NPO: Yes ASA Class: III Final Preanesthetic Review: No Changes in Pt Med Stat, Meds/Allgs Chart Reviewed, Consent Obtained/Reviewed and Anes Risks/Benef Reviewed Patient Risk: Intermediate Procedure Risk: Low Anesthetic Plan Disposition: Standard PACU
[2021-11-15] VITALS (9 sets, daily range): BP systolic 135–183; BP diastolic 83–97; PULSE 80–107; RESP 16–19; TEMP 36.2–37.4; O2SAT 95–98; BMI 31.1
[2021-11-15 08:38] LABS: UPreg QC Valid YES; Urine Pregnancy NEGATIVE (NEGATIVE)
[2021-11-15] MEDS: Lactated Ringers 1,000 ML 100 ML IVCONT (08:42)
--- NOTE | 2021-11-15 08:44 | MHC.SHP ---
Pre-Procedural Eval Section A Date of Service: 11/15/21 The patient is an INPATIENT: No Changes since office visit: No Cold of Flu in the past 2 weeks, No New Medical Problems, No Changes in Medication and No Patient answered all questions The History & Physical has been completed within 30 days and I have reviewed it.: Yes Section B Chief Complaint: bleeding,polyp Allergies: Allergies Allergy/AdvReac Type Severity Reaction Status Date / Time clarithromycin [From BIAXIN] Allergy Unknown RASH Verified 11/05/21 09:12 codeine [CODEINE] Allergy Unknown RASH Verified 11/05/21 09:12 iodine [IODINE] Allergy Unknown RASH Verified 11/05/21 09:12 Penicillins [PENICILLINS] Allergy Unknown RASH Verified 11/05/21 09:12 Sulfa (Sulfonamide Allergy Unknown RASH Verified 11/05/21 09:12 Antibiotics) [SULFA (SULFONAMIDE ANTIBIOTICS)] Plan Diagnosis/Plan: Unchanged I have reviewed the history and physical and performed a pertinent physical examination on my patient. No changes have occurred unless specified.
--- NOTE | 2021-11-15 09:30 | P.BOP_ITS ---
Brief Operative Note Date of Service: 11/15/21 Pre-op diagnosis: Cervical polyps, AUB Post-op diagnosis: same (Same plus cervical polyps x2) Procedure: Hysteroscopy D&C, Polypectomy Surgeon: Pollo Sunshine MD Anesthesia: GLMA Was an Frame Sample And Pattern Supervisor used for this Procedure?: No Estimated blood loss (mL): 0 Pathology: other (Endometrial Scrapping. Cervical Polyps) Condition: stable Disposition: PACU
--- NOTE | 2021-11-15 09:31 | W.PM.OPN ---
Operative Note Operative Note Date of Service: 11/15/21 Narrative: Preop Diagnosis: Abnormal uterine bleeding, long cervical polyps x2 Operation: Diagnostic Hysteroscopy, Dilataion & Curettage and polypectomy Post Op Diagnosis: Long Cervical polyps, normal endometrial cavity QBL: Minimal Anesthesia: MAC Surgeon: Pollo Sunshine MD Production Assembly Supervisor: None Complication: None Pathology: Endometrial Scrapings, long cervical polyps x2 Procedure: The patient was put in the dorsal lithotomy position, scrubbed, and draped in the usual manner. A sterile speculum was inserted in the patient's vagina. Two long cervical polyps were identified, both were grasped with a Marychuy clamp and using cautery were excised from their bases, 1 and a time., The anterior lip of the cervix was then grasped with a single tooth tenaculum. The cervix was dilated up to 5 mm, then the scope was inserted in the patient's uterus. Inspection revealed normal endometrial cavity with no evidence of pathology. The Myosure Reach device was used; it was introduced through the operative channel and polypectomy done with no complications. Sharp curettings was carried down with mild to moderate amount of tissues retrieved. At the end of the procedure, all instruments were taken out of the patient uterine and vaginal cavity. The single tooth tenaculum was removed and homeostasis was assured using pressure,. The patient tolerated the procedure well and was transferred to the PACU in a stable condition.
[2021-11-15] MEDS: oxyCODONE HCl Immed Release 5 MG TABLET PO (09:40)
[2021-11-15] MEDS: fentaNYL citrate/PF 100 MCG/2 ML VIAL 25 MCG IVPUSH ×2 (09:40→10:04)
[2021-11-15] MEDS: ondansetron HCL 4 MG/2 ML VIAL IVPUSH (09:40)
== END 2021-11-15 10:56 | disposition home or self-care (01) ==
PROVIDERS: PCP Family Medicine; Visit Provider Obstetrics & Gynecology
PROC: 0UDB8ZZ Extraction of Endometrium, Via Natural or Artificial Opening Endoscopic (ICD-10-PCS; CPT 58558; principal; 2021-11-15 10:10)
DX: N93.9 Abnormal uterine and vaginal bleeding, unspecified (principal); N84.1 Polyp of cervix uteri; R31.29 Other microscopic hematuria; I10 Essential (primary) hypertension; J45.909 Unspecified asthma, uncomplicated; Z88.0 Allergy status to penicillin; Z88.1 Allergy status to other antibiotic agents; Z88.2 Allergy status to sulfonamides; Z88.8 Allergy status to other drugs, medicaments and biological substances; Z91.041 Radiographic dye allergy status
CPT/HCPCS: 58558; 81025; 88305; J1100; J2250; J2405; J3010

== ENCOUNTER 2021-11-20 13:51 | Emergency (ER) | payer MEDICARE, MEDICAID, SELFPAY ==
[2021-11-20 14:49] VITALS: BP 151/84; PULSE 79; RESP 18; TEMP 37.3; O2SAT 97; BMI 29.4
[2021-11-20 15:04] LABS: Appearance Urine CLEAR; Color Urine YELLOW; Glucose Urine UA NEG (NEG); Leukocyte Esterase Urine 1+ (NEG); Nitrite Urine NEG (NEG); PH 5.5 (5.0-8.0); UACC Culture Trigger YES; Urine Blood 2+ (NEG); Urine Ketones NEG (NEG); Urine Protein NEG (NEG-TRACE)
[2021-11-20 15:24] LABS: Squamous Epithelial Cell Urine 1+ /LPF
--- NOTE | 2021-11-20 16:18 | ED_ITS ---
HPI - Female Genitourinary General Chief complaint: Urogenital-Female Stated complaint: QUEST UTI Time Seen by Provider: 11/20/21 16:09 Source: patient Mode of arrival: ambulatory Limitations: no limitations History of Present Illness HPI Narrative: 51-year-old female with a past medical history of asthma, back pain and hypertension presenting to the ED with complaints of dysuria with increased urinary frequency/urgency since last night worse today. Reports that she has cervical polyps removed on Thursday. Denies any fevers, chills, dizziness, headaches, neck pain/stiffness, trouble swallowing breathing, chest pain or shortness of breath, back pain, flank pain, hematuria, abnormal vaginal discharge, thoughts of STDs, diarrhea constipation, black or bloody stools, rashes or any other symptoms complaints or concerns at this time. MD elicited complaint: dysuria and UTI Onset (ago): day(s) (Since last night worse today) Severity: mild Consistency: constant Vaginal discharge: none Vaginal bleeding: none Urinary symptoms: Dysuria, Urgency and Frequency Exacerbating factors: urination Relieving factors: none Associated symptoms: denies other symptoms Treatment prior to arrival: none Sexual activity: No Patient : No Related Data Home Medications Medication Instructions Recorded Confirmed budesonide-formoterol HFA 160 2 puff PO DAILY 11/05/21 mcg-4.5 mcg/actuation aerosol inhaler (Symbicort) paroxetine HCl 10 mg tablet 10 mg PO DAILY 11/14/21 Previous Rx's Medication Instructions Recorded ibuprofen 800 mg tablet 800 mg PO Q6H PRN pain #14 tabs 04/01/21 nitrofurantoin 100 mg PO BID 5 days #10 caps 11/20/21 monohydrate/macrocrystals 100 mg capsule (Macrobid) nitrofurantoin 100 mg PO BID uti 7 days #14 caps 11/20/21 monohydrate/macrocrystals 100 mg capsule (Macrobid) Allergies Allergy/AdvReac Type Severity Reaction Status Date / Time clarithromycin [From BIAXIN] Allergy Unknown RASH Verified 11/20/21 14:48 codeine [CODEINE] Allergy Unknown RASH Verified 11/20/21 14:48 iodine [IODINE] Allergy Unknown RASH Verified 11/20/21 14:48 Penicillins [PENICILLINS] Allergy Unknown RASH Verified 11/20/21 14:48 Sulfa (Sulfonamide Allergy Unknown RASH Verified 11/20/21 14:48 Antibiotics) [SULFA (SULFONAMIDE ANTIBIOTICS)] Review of Systems Review of Systems: Constitutional : No Weight loss, No Fever, No Chills, No Night Sweats, No Fatigue, No Malaise ENT/Mouth : No Hearing loss, No Ear Pain, No Nasal Congestion, No Sinus Pain, No Hoarseness, No sore throat, No Rhinorrhea, No Swallowing Difficulty Eyes: No Eye Pain, No Swelling, No Redness, No Foreign Body, No Discharge, No Vision Changes Cardiovascular : No Chest Pain, No SOB, No Dyspnea on Exertion, No Orthopnea, No Edema, No Palpitations Respiratory : No Cough, No Sputum, No Wheezing, No Smoke Exposure, No Dyspnea Gastrointestinal : No Nausea, No Vomiting, No Diarrhea, No Constipation, No abdominal Pain, No Hematochezia, No Melena Genitourinary : + dysuria/increased urinary frequency/urgency, no irregular bleeding, No Hematuria, No Urinary Incontinence, No Flank Pain, No Urinary Flow Changes, No Hesitancy Musculoskeletal : No joint pain, No Myalgias, No Joint Swelling Skin : No Skin Lesions, No rash Neuro : No Weakness, No Numbness, No Paresthesias, No Loss of Consciousness, No Dizziness, No Headache Psych : No Anxiety/Panic, No Depression, No SI/HI/AH/VH, No Social Issues, Heme/Lymph: No Bruising, No Bleeding,No Lymphadenopathy Endocrine : No Polyuria, No Polydipsia, No Temperature Intolerance Yes all other systems are reviewed and are negative PMFSH Past Medical History Attestation statement: The following information was validated with the patient. Source: old records reviewed and nursing notes reviewed Medical History Asthma Back pain Hypertension Spina bifida Vertigo Surgical History H/O tooth extraction Family History Family History Maternal Aunt Breast CA Social History Social History Patient Tobacco Use Status: Never used Tobacco Second Hand Smoke Exposure: No Advance Directives: No Advance Directives Information Provided: No Physical Exam Vital Signs: Vital Signs: Last Vital Signs Temp 99.1 F 08/10/22 14:49 Pulse 79 11/20/21 14:49 Resp 18 11/20/21 14:49 BP 151/84 H 11/20/21 14:49 Pulse Ox 97 11/20/21 14:49 O2 Del Method 11/20/21 14:49 BMI result Body Mass Index 29.4 vital signs have been reviewed as normal and appeared to be correct. Blood pressure 151/84. Heart rate normal. Respiration rate normal. Temperature normal. Oxygen saturation normal. Appearance: Alert. Oriented X3. No acute distress. Head: Normal external exam. Normocephalic. Eyes: PERRLA. EOMI. Conjunctiva and sclera normal. Eyelids normal. ENT: Pharynx normal. Uvula midline. Moist mucous membranes. No trismus noted. No drooling noted. No muffled voice noted. Neck: Normal inspection. Neck supple. FROM. No adenopathy. No meningeal signs. CVS: Normal heart rate and rhythm. Heart sound normal. No murmurs noted. Pulses normal throughout. Respiratory: No respiratory distress. Painless inspiration. Breath sounds no rmal. No wheezes/rales/rhonchi noted. Chest nontender. No accessory muscle usage noted or decreased air movement noted. Abdomen: Soft and nontender. Nondistended. No guarding. No rigidity. Bowel so unds normal in all 4 quadrants. No distention noted. No organomegaly noted. No visible injury noted. No rebound tenderness. Negative Rovsing sign. Negative obturator's sign. Negative psoas sign. Negative Mckeon sign. Back: No CVA tenderness. Full range of motion noted. Skin: Skin warm and dry. Normal skin color. Normal skin turgor. No rashes/lesions/lacerations noted. Extremities: Extremities exhibit normal range of motion. Extremities nontender. Neuro: Oriented X 3. No motor deficit. No sensory deficit. Reflexes normal. Normal steady gait. CN's II-XII intact bilaterally? Course Course Course Narrative: UA positive for blood and leukocytes otherwise negative for nitrates although due to patient having symptoms will DC home with Macrobid no additional labs or imaging indicated as patient denies any fevers or abdominal pain or flank pain or hematuria. Along with instructions return if any new or worsening symptoms follow up with primary care provider. Patient understands agrees with this plan. MDM - Female Genitourinary Medical Records Attestation: I reviewed the patient's medical records. Lab Data Attestation: I reviewed the patient's lab results. Labs: Lab Results 11/20/21 Range/Units 14:54 Urine Color YELLOW Urine Appearance CLEAR Urine pH 5.5 (5.0-8.0) Ur Specific [place] 1.010 (1.005-1.025) Urine Protein NEG (NEG-TRACE) MG/DL Urine Glucose (UA) NEG (NEG) MG/DL Urine Ketones NEG (NEG) MG/DL Urine Blood 2+ H (NEG) Urine Nitrite NEG (NEG) Ur Leukocyte Esterase 1+ H (NEG) Urine RBC 1-4 (0) /HPF Urine WBC 1-4 (0-4) /HPF Ur Squamous Epith Cells 1+ /LPF Urine Bacteria NONE /LPF Discharge Plan Discharge Clinical Impression: UTI (urinary tract infection) Patient Disposition: Home, Self-Care Instructions: Urinary Tract Infection in Women (ED) Prescriptions: New nitrofurantoin monohyd/m-cryst [Macrobid] 100 mg capsule 100 mg PO BID 7 Days Qty: 14 0RF Rx Instructions: must administer with a meal/food No Action nitrofurantoin monohyd/m-cryst [Macrobid] 100 mg capsule 100 mg PO BID 5 Days Qty: 10 0RF ibuprofen 800 mg tablet 800 mg PO Q6H PRN (Reason: pain) Qty: 14 0RF budesonide-formoterol [Symbicort] 160-4.5 mcg/actuation HFA aerosol inhaler 2 puff PO DAILY paroxetine HCl 10 mg tablet 10 mg PO DAILY Referrals: Soha Can MD [Primary Care Provider] - 2 days Print Language: Tristanian
== END 2021-11-20 16:40 | disposition home or self-care (01) ==
PROVIDERS: Emergency Provider Internal Medicine; PCP Family Medicine
DX: N39.0 Urinary tract infection, site not specified (principal); B96.4 Proteus (mirabilis) (morganii) as the cause of diseases classified elsewhere; I10 Essential (primary) hypertension
CPT/HCPCS: 81001; 81003; 87086; 87088; 87186; 99282; 99283

== ENCOUNTER → 2021-11-28 12:47 | Outpatient (BNVA) | payer MEDICARE, MEDICAID, SELFPAY | PROVIDERS: PCP Family Medicine; Visit Provider Obstetrics & Gynecology | DX: Z48.816 Encounter for surgical aftercare following surgery on the genitourinary system (principal); N39.0 Urinary tract infection, site not specified; N84.1 Polyp of cervix uteri; R31.29 Other microscopic hematuria | CPT/HCPCS: 99212 ==

== ENCOUNTER 2021-12-06 10:04 | Outpatient (REF) | payer MEDICARE, MEDICAID, SELFPAY ==
[2021-12-06 11:30] LABS: Appearance Urine Clear; Color Urine Yellow; Glucose Urine UA Negative (Negative); Leukocyte Esterase Urine Trace (Negative); Nitrite Urine Negative (Negative); PH 5.5 (5.0-8.0); Urine Blood Small (1+) (Negative); Urine Ketones Negative (Negative); Urine Protein Negative (Neg-Trace)
[2021-12-06 11:40] LABS: Bacteria Urine None Seen (None Seen); Hyaline Casts Urine 0-2 /LPF (0-2); Squamous Epithelial Cell Urine 0-2 /HPF (0-2); WBC Urine 0-5 /HPF (0-5)
== END 2021-12-06 10:05 | disposition home or self-care (01) ==
LOC: HO.LAB 10:04
PROVIDERS: PCP Family Medicine; Visit Provider Obstetrics & Gynecology
DX: N39.0 Urinary tract infection, site not specified (principal)
CPT/HCPCS: 81001

== ENCOUNTER 2021-12-10 10:31 | Outpatient (REF) | payer MEDICARE, MEDICAID, SELFPAY | END 2021-12-10 10:32 | disposition home or self-care (01) | LOC: HO.LAB 10:31 | PROVIDERS: Visit Provider Obstetrics & Gynecology | DX: N39.0 Urinary tract infection, site not specified (principal); R31.29 Other microscopic hematuria | CPT/HCPCS: 87086; 87147 ==

== ENCOUNTER 2021-12-24 12:37 | Outpatient (REF) | payer MEDICARE, MEDICAID, SELFPAY ==
[2021-12-24 18:08] LABS: CT PCR NOT DETECTED (Not Detect.); NG PCR NOT DETECTED (Not Detect.)
[2021-12-25 15:51] LABS: BV Int Neg Control Negative (Negative); BV Int Pos Control Positive (Positive)
== END 2021-12-24 12:38 | disposition home or self-care (01) ==
LOC: HO.LNP 12:37
PROVIDERS: PCP Family Medicine; Visit Provider Obstetrics & Gynecology
DX: N39.0 Urinary tract infection, site not specified (principal); R31.29 Other microscopic hematuria; N76.0 Acute vaginitis; B96.89 Other specified bacterial agents as the cause of diseases classified elsewhere
CPT/HCPCS: 87086; 87147; 87480; 87491; 87510; 87591; 87660; 99212

== ENCOUNTER 2022-01-09 09:45 | Outpatient (REF) | payer MEDICARE, MEDICAID, SELFPAY ==
[2022-01-09 11:06] LABS: Appearance Urine Clear; Color Urine Yellow; Glucose Urine UA Negative (Negative); Leukocyte Esterase Urine Negative (Negative); Nitrite Urine Negative (Negative); PH 6.5 (5.0-9.0); Specific Gravity - Urine 1.015 (1.005-1.025); Urine Blood Negative (Negative); Urine Ketones Negative (Negative); Urine Protein Negative (Neg-Trace)
== END 2022-01-09 09:46 | disposition home or self-care (01) ==
LOC: HO.LAB 09:45
PROVIDERS: PCP Family Medicine; Visit Provider Obstetrics & Gynecology
DX: N39.0 Urinary tract infection, site not specified (principal)
CPT/HCPCS: 81003

== ENCOUNTER 2022-02-04 10:07 | Outpatient (REF) | payer MEDICARE, MEDICAID, SELFPAY ==
[2022-02-04 15:40] LABS: CT PCR NOT DETECTED (Not Detect.); NG PCR NOT DETECTED (Not Detect.)
[2022-02-05 09:14] LABS: BV Int Neg Control Negative (Negative); BV Int Pos Control Positive (Positive)
== END 2022-02-04 10:08 | disposition home or self-care (01) ==
LOC: HO.LNP 10:07
PROVIDERS: PCP Family Medicine; Visit Provider Obstetrics & Gynecology
DX: Z11.3 Encounter for screening for infections with a predominantly sexual mode of transmission (principal); B37.31 Acute candidiasis of vulva and vagina
CPT/HCPCS: 87480; 87491; 87510; 87591; 87660; 99212

== ENCOUNTER 2022-02-14 14:45 | Outpatient (REF) | payer MEDICARE, MEDICAID, SELFPAY ==
--- NOTE | ~2022-02-14 | US_ITS ---
EXAMINATION: US PELVIS CLINICAL INFORMATION: Ovarian cyst. COMPARISON: 11/08/[address] scan of 10/08/2021. TECHNIQUE: Ultrasound of the pelvis is performed using both transabdominal and transvaginal transducers along with Doppler. Transvaginal imaging is performed due to inadequate visualization transabdominally. FINDINGS: UTERUS: The uterus is anteverted and measures 8.2 x 3.9 x 4.2 cm. Within the anterior body of the uterus there is again noted to be a 1.4 x 1.0 x 1.3 cm circumscribed soft tissue lesion likely representing a fibroid. The double wall endometrial thickness is 0.4 mm. ADNEXA: Both ovaries are visualized. There is normal color flow to the adnexa. There is no ovarian torsion. Follicular cysts are seen bilaterally for which no followup is recommended. There are a few echogenic foci again seen within the left ovary which may represent calcifications or fat. Right ovary measures 2.4 x 1.4 x 2.2 cm. Volume of 3.9 mL. No suspicious adnexal lesion. Previously noted right ovarian cyst has regressed. Left ovary measures 2.1 x 1.1 x 2.0 cm. Volume of 3.1 mL. There is trace free fluid within the cul-de-sac. US/US pelvic and transvaginal IMPRESSION: 1.4 cm uterine body fibroid. No suspicious ovarian cysts or masses.
== END 2022-02-14 14:46 | disposition home or self-care (01) ==
LOC: HO.US 14:45
PROVIDERS: Visit Provider Obstetrics & Gynecology
DX: N83.299 Other ovarian cyst, unspecified side (principal)
CPT/HCPCS: 76830; 76856

== ENCOUNTER → 2022-02-24 14:33 | Outpatient (BNVA) | payer MEDICARE, MEDICAID, SELFPAY | PROVIDERS: PCP Family Medicine; Visit Provider Obstetrics & Gynecology | DX: D21.9 Benign neoplasm of connective and other soft tissue, unspecified (principal); N83.209 Unspecified ovarian cyst, unspecified side; L72.3 Sebaceous cyst | CPT/HCPCS: 99212 ==

== ENCOUNTER 2022-03-17 09:38 | Outpatient (REF) | payer MEDICARE, MEDICAID, SELFPAY ==
[2022-03-17 16:59] LABS: Urine Cytology See Pathology rpt
== END 2022-03-17 09:39 | disposition home or self-care (01) ==
LOC: HO.LAB 09:38
PROVIDERS: PCP Family Medicine; Visit Provider Urology
DX: R31.29 Other microscopic hematuria (principal); N39.0 Urinary tract infection, site not specified
CPT/HCPCS: 51798; 88112; 99202

== ENCOUNTER → 2022-06-11 15:05 | Outpatient (BNVA) | payer MEDICARE, MEDICAID, SELFPAY | PROVIDERS: PCP Family Medicine; Visit Provider Urology | DX: R31.29 Other microscopic hematuria (principal) | CPT/HCPCS: 52000 ==

== ENCOUNTER 2023-03-19 09:15 | Outpatient (AMB) | payer MEDICARE, MEDICAID, SELFPAY ==
--- NOTE | 2023-03-19 09:23 | MHC.OFFVIS ---
Intake Vital Signs 03/19/23 09:26 Height 5 ft 2 in Weight 216 lb BMI 39.5 BP 132/96 H Intake Visit Reasons: Annual/Do not r/s Director Of Education And Training Required: No Information Interpreted: non-clinical & clinical Cnc Machine Programmer: Cnc Machine Programmer Present (Sonia) Allergies clarithromycin [From BIAXIN] Allergy (Unknown, Verified 03/19/23 09:28) RASH codeine [CODEINE] Allergy (Unknown, Verified 03/19/23 09:28) RASH iodine [IODINE] Allergy (Unknown, Verified 03/19/23 09:28) RASH Penicillins [PENICILLINS] Allergy (Unknown, Verified 03/19/23 09:28) RASH Sulfa (Sulfonamide Antibiotics) [SULFA (SULFONAMIDE ANTIBIOTICS)] Allergy (Unknown, Verified 03/19/23 09:28) RASH Is last menstrual period known: No HPI HPI Comments History of Present Illness Details Presenting for annual exam. The patient is complaining of lower abdominal distention over the last few months no other associated symptoms Last Pap/HPV was in 11/01 was negative No previous recent screening Mammogram No previous colonoscopy PFSH Medical History Vertigo Spina bifida Hypertension Back pain Asthma Surgical History H/O tooth extraction Family History Maternal Aunt Breast CA Social History Household Members: Significant Other Housing: Apartment Unable to assess alcohol history related to: Unknown Patient Tobacco Use Status: Never used Tobacco Second Hand Smoke Exposure: No Sexual orientation: Straight/Heterosexual Gender identity: Female Female Reproductive History Menstrual Age of Menarche: 13 control method: none Total pregnancies: 0 Date of last pap smear: 11/07/21 (negative) Review of Systems Const All systems reviewed & are unremarkable except as noted in HPI and below Card Reports as per HPI Resp Reports as per HPI GI Reports as per HPI and Reports no additional complaints Reports as per HPI Physical Exam Vital Signs: Last Vital Signs BP 132/96 H 03/19/23 09:26 BMI result Body Mass Index 39.5 Const General: cooperative, healthy appearing and comfortable Chest Chest palpation & inspection: normal inspection of the chest and normal palpation of entire chest wall Breast/axilla inspection: normal inspection of the breasts and normal inspection of the axillae Breast/axilla palpation: normal palpation of the breasts, normal palpation of the axillae and no axillary lymphadenopathy Resp Effort & Inspection: normal respiratory effort Auscultation: clear to auscultation bilaterally Percussion: percussion normal Cardio Palpation: normal PMI Rate: regular rate Rhythm: regular rhythm Heart sounds: no murmurs and no rubs Peripheral pulses: Peripheral pulses 2+ throughout GI Inspection: Yes normal to inspection Palpation (GI): Soft to palpation, nontender, no guarding, not rigid and No hepatosplenomegaly present Percussion: Yes normal to percussion Auscultation: normal bowel sounds Rectal Exam - Female: deferred General: Yes bladder normal to palpation External Female Exam: No lesion Speculum Exam - Vagina: normal appearance of the vagina, normal palpation, normal vaginal discharge and not erythematous Speculum Exam - Cervix: normal appearance of the cervix and normal palpation Bimanual exam- vagina & uterus: normal bimanual exam, normal palpation, uterine size normal, bladder normal to palpation, consistency normal and normal palpation Bimanual Exam- Adnexa, other: normal adnexae, no masses and no tenderness Assessment & Plan Assessment & Plan (1) Well woman exam: Code(s): Z01.419 - Encounter for gynecological examination (general) (routine) without abnormal findings Plan: Co testing not indicated this year. Counseled the patient about the recommended dietary allowance of 1200 mg of Calcium & 600 IU of vitamin D. Mammogram ordered. The patient was referred to GI for screening colonoscopy . The patient was instructed to perform monthly self-breast exams and schedule annual exam in a year. All questions answered and the patient verbalized understanding. (2) Abdominal distention: Code(s): R14.0 - Abdominal distension (gaseous) Plan: Will order pelvic ultrasound to rule out gynecological causes and instructions given to patient to schedule a 2 week ultrasound follow-up appointment to call her PCP for further management of her abdominal distension to rule out non gynecological causes. All questions answered, the patient verbalized understanding. Orders: Orders MM screening mammo BI Today Z12.31 - Encounter for screening mammogram for malignant neoplasm of breast US pelvic and transvaginal Today R14.0 - Abdominal distension (gaseous) Referrals Gastroenterology Referral Z12.11 - Encounter for screening for malignant neoplasm of colon Coding Level of Care Code Est Pt Prev Care 40-64y(83554) Diagnoses Well woman exam Z01.419 Abdominal distention R14.0
[2023-03-19 09:26] VITALS: BP 132/96; BMI 39.5
== END 2023-03-19 09:50 | disposition home or self-care (01) ==
LOC: HO.HWS 09:15
PROVIDERS: PCP Family Medicine; Visit Provider Obstetrics & Gynecology
DX: Z01.419 Encounter for gynecological examination (general) (routine) without abnormal findings (principal); R14.0 Abdominal distension (gaseous)
CPT/HCPCS: G0101

== ENCOUNTER → 2023-03-19 09:15 | Outpatient (BNVA) | payer MEDICARE, MEDICAID, SELFPAY | PROVIDERS: PCP Family Medicine; Visit Provider Obstetrics & Gynecology | DX: Z01.419 Encounter for gynecological examination (general) (routine) without abnormal findings (principal); R14.0 Abdominal distension (gaseous) | CPT/HCPCS: G0101 ==

== ENCOUNTER 2024-03-21 12:58 | Outpatient (AMB) | payer MEDICARE, MEDICAID, SELFPAY ==
--- NOTE | 2024-03-21 13:02 | A.OFFVIS_ITS ---
Vital Signs 03/21/24 13:09 Height 5 ft 3 in Weight 245 lb BMI 43.4 BP 124/86 Intake Visit Reasons: Annual Global Creative Chairman Required: No Information Interpreted: non-clinical & clinical Rn Internal Medicine: Rn Internal Medicine Present (Sonia Thomason MAL) Accompanied by: Self / Same As Patient Allergies clarithromycin [From BIAXIN] Allergy (Unknown, Verified 03/21/24 13:16) RASH codeine [CODEINE] Allergy (Unknown, Verified 03/21/24 13:16) RASH iodine [IODINE] Allergy (Unknown, Verified 03/21/24 13:16) RASH Penicillins [PENICILLINS] Allergy (Unknown, Verified 03/21/24 13:16) RASH Sulfa (Sulfonamide Antibiotics) [SULFA (SULFONAMIDE ANTIBIOTICS)] Allergy (Unknown, Verified 03/21/24 13:16) RASH Post menopausal: Yes HPI Comments Details: Presenting for annual exam. Complaining of burning on urination the last 2 days, no fever or chills Last Pap/HPV was negative in 11/01 No previous screening Mammogram No previous screening Colonoscopy PFSH Medical History Vertigo Spina bifida Hypertension Back pain Asthma Surgical History H/O tooth extraction Family History Maternal Aunt Breast CA Social History Household Members: Significant Other Housing: Apartment Unable to assess alcohol history related to: Unknown Patient Tobacco Use Status: Never used Tobacco Second Hand Smoke Exposure: No Sexual orientation: Straight/Heterosexual Gender identity: Female Female Reproductive History Menstrual Age of Menarche: 13 Date of last pap smear: 11/07/21 Review of Systems Const All systems reviewed & are unremarkable except as noted in HPI and below Card Reports as per HPI Resp Reports as per HPI GI Reports as per HPI and Reports no additional complaints Reports as per HPI Physical Exam Const General: cooperative, healthy appearing and comfortable Chest Chest palpation & inspection: normal inspection of the chest and normal palpation of entire chest wall Breast/axilla inspection: normal inspection of the breasts and normal inspection of the axillae Breast/axilla palpation: normal palpation of the breasts, normal palpation of the axillae and no axillary lymphadenopathy Resp Effort & Inspection: normal respiratory effort Auscultation: clear to auscultation bilaterally Percussion: percussion normal Cardio Palpation: normal PMI Rate: regular rate Rhythm: regular rhythm Heart sounds: no murmurs and no rubs Peripheral pulses: Peripheral pulses 2+ throughout GI Inspection: Yes normal to inspection Palpation (GI): Soft to palpation, nontender, no guarding, not rigid and No hepatosplenomegaly present Percussion: Yes normal to percussion Auscultation: normal bowel sounds Rectal Exam - Female: deferred General: Yes bladder normal to palpation External Female Exam: No lesion Speculum Exam - Vagina: normal appearance of the vagina, normal palpation, normal vaginal discharge and not erythematous Speculum Exam - Cervix: normal appearance of the cervix and normal palpation Bimanual exam- vagina & uterus: normal bimanual exam, normal palpation, uterine size normal, bladder normal to palpation, consistency normal and normal palpation Bimanual Exam- Adnexa, other: normal adnexae, no masses and no tenderness Assessment & Plan Assessment & Plan (1) Well woman exam: Code(s): Z01.419 - Encounter for gynecological examination (general) (routine) without abnormal findings Category: Medical Plan: Co testing not indicated this. Counseled the patient about the recommended dietary allowance of 1200 mg of Calcium & 600 IU of vitamin D. Mammogram ordered. The patient was referred to GI for screening colonoscopy . The patient was instructed to perform monthly self-breast exams and schedule annual exam in a year. All questions answered and the patient verbalized understanding. (2) Microscopic hematuria: Comment: History of microscopic hematuria under the care of urology Code(s): R31.29 - Other microscopic hematuria Category: Medical Plan: Urine dip showed microscopic hematuria, urine culture sent. Will check urine culture and treat accordingly. Since the patient has history of microscopic hematuria under the care of Urology, instructions were given to the patient to schedule a follow-up appointment with urology. All questions answered, the patient verbalized understanding Orders: Orders MM tomosynthesis screening BI Today Z12.31 - Encounter for screening mammogram for malignant neoplasm of breast Urine Culture Today R31.29 - Other microscopic hematuria Referrals Gastroenterology Referral Z12.11 - Encounter for screening for malignant neoplasm of colon Coding Level of Care Code Est Pt Level 3 (88730) Est Pt Prev Care 40-64y(75166) Diagnoses Well woman exam Z01.419 Microscopic hematuria R31.29
[2024-03-21 13:09] VITALS: BP 124/86; BMI 43.4
== END 2024-03-21 13:28 | disposition home or self-care (01) ==
PROVIDERS: PCP Family Medicine; Visit Provider Obstetrics & Gynecology
DX: Z01.419 Encounter for gynecological examination (general) (routine) without abnormal findings (principal); R31.29 Other microscopic hematuria
CPT/HCPCS: 99213; 99396

== ENCOUNTER 2024-03-21 13:00 | Outpatient (REF) | payer MEDICARE, MEDICAID, SELFPAY | END 2024-03-21 13:01 | disposition home or self-care (01) | LOC: HO.LNP 13:00 | PROVIDERS: PCP Family Medicine; Visit Provider Obstetrics & Gynecology | DX: Z01.419 Encounter for gynecological examination (general) (routine) without abnormal findings (principal); R31.29 Other microscopic hematuria | CPT/HCPCS: 87086; 87147; 99212; 99396; 99459 ==